=== PATIENT | female | born 1950 | race American Indian/Alaskan Native ===

== ENCOUNTER 2016-11-16 17:57 | Emergency (ER) | payer MEDICARE, MEDICAID ==
--- NOTE | 2016-11-16 17:53 | EDM.PDOC ---
ED HISTORY OF PRESENT ILLNESS - General Chief Complaint: Chest Pain Stated Complaint: AMB Time Seen by Provider: 11/16/16 17:29 Source of Information: Reports: Patient, EMS notes reviewed, RN, RN notes reviewed History Limitations: Reports: No limitations - History of Present Illness INITIAL COMMENTS - FREE TEXT/NARRATIVE: Arrives by ambulance complaining of chest pain, nausea, vomiting and upper abdominal pain. Patient admits to several days of heavy alcohol drinking and chronic ETOH abuse. Severity: moderate Location, General: Reports: chest Quality: Reports: Ache Improves with: Reports: None Worsens with: Reports: None Associated Symptoms (General): Reports: no other symptoms - Related Data Allergies/ADRs: Allergies Allergy/AdvReac Type Severity Reaction Status Date / Time lisinopril Allergy Cough Verified 11/16/16 18:19 Home Meds: Home Meds Aspirin [Darek Chewable Aspirin] 81 mg PO DAILY 04/09/14 [History] Bimatoprost [LUMIGAN 0.01% Ophth Soln] 1 drop EYEBOTH BEDTIME 04/09/14 [History] Insulin Aspart [Novolog Flexpen] 15 units SQ TID 04/09/14 [History] Metoprolol Succinate [Toprol XL 50mg] 50 mg PO DAILY 04/09/14 [History] Losartan [Cozaar] 25 mg PO DAILY 06/22/15 [History] Acetaminophen [Tylenol] 2 tab PO ASDIRECTED PRN 10/09/15 [History] Omeprazole 20 mg PO DAILY 10/09/15 [History] Insulin Detemir [Levemir] 50 unit SQ BEDTIME 10/14/15 [History] glipiZIDE [Glucotrol XL] 2.5 mg PO DAILY 04/19/16 [History] Past Medical History HEENT History: Reports: None, Impaired vision Other HEENT History: WEARS CORRECTIVE LENSES; UPPER AND LOWER DENTURES, DOESN'T WEAR THEM Cardiovascular History: Reports: Angina, Hypertension Respiratory History: Reports: Asthma, Bronchitis, recurrent Gastrointestinal History: Reports: Gastritis, GERD Genitourinary History: Reports: STD, UTI, recurrent Other Genitourinary History: trichomonas vaginitis [employer] History: Reports: 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 History: Reports: Fracture Other 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 History: fractured right fibula (closed reduction) Neurological History: Reports: None Psychiatric History: Reports: Addiction, Anxiety Other Psychiatric History: hx alcoholism Endocrine/Metabolic History: Reports: Diabetes, type II, Obesity/BMI 30+ Hematologic History: Reports: None Immunologic History: Reports: None Oncologic (Cancer) History: Reports: None Dermatologic History: Reports: None - Infectious Disease History Infectious Disease History: Reports: Chicken pox, Measles - Past Surgical History HEENT Surgical History: Reports: Oral surgery Cardiovascular Surgical History: Reports: None GI Surgical History: Reports: Appendectomy, Cholecystectomy, Colonoscopy, EGD Female Surgical History: Reports: None Social & Family History - Family History Family Medical History: Noncontributory - Tobacco Use Smoking Status *Q: Current Every Day Smoker Years of Tobacco use: 50 Packs/Tins Daily: 0.2 Used Tobacco, but Quit: No Second Hand Smoke Exposure: Yes - Caffeine Use Caffeine Use: Reports: Soda - Alcohol Use Days Per Week of Alcohol Use: 1 Number of Drinks Per Day: 15 Total Drinks Per Week: 15 - Recreational Drug Use Recreational Drug Use: No Drug Use in Last 12 Months: No - Living Situation & Occupation Living situation: Reports: , with family Occupation: unemployed ED ROS GENERAL - Review of Systems Review Of Systems: ROS reveals no pertinent complaints other than HPI. ED EXAM, GENERAL - Physical Exam Exam: See Below Exam Limited By: No limitations General Appearance: other (obese, intoxicated.) Eye Exam: bilateral eye: normal inspection Ears: normal external exam, normal canal, hearing grossly normal, normal TMs Nose: normal inspection, normal mucosa, no blood Throat/Mouth: Normal inspection, Normal lips, Normal teeth, Normal gums, Normal oropharynx, Normal voice, No airway compromise Head: atraumatic, normocephalic Neck: normal inspection, supple, non-tender, full range of motion Respiratory/Chest: no respiratory distress, lungs clear, normal breath sounds, no accessory muscle use, chest non-tender Cardiovascular: normal peripheral pulses, regular rate, rhythm, no edema, no gallop, no JVD, no murmur, no rub GI/Abdominal: other (mild epigastric tenderness. Obese.) Back Exam: normal inspection, full range of motion, NT Extremities: normal inspection, normal range of motion, non-tender, normal capillary refill, no pedal edema Neurological: alert, oriented, CN II-XII intact, normal cognition, normal gait, normal reflexes, no motor/sensory deficits Psychiatric: normal affect, normal mood Skin Exam: Warm, Dry, Intact, Normal color, No rash EKG INTERPRETATION EKG Date: 11/16/16 Time: 17:42 Rhythm: other (sinus tachycardia) Rate (beats/min): 120 [place]: normal P-wave: present QRS: RBBB (and LPFB and inferior Q waves) ST-T: normal QT: normal Course - Vital Signs Last Recorded V/S: Last Vital Signs Temp 36.1 C 11/16/16 17:30 Pulse 74 11/16/16 17:30 Resp 18 11/16/16 17:30 BP 124/68 11/16/16 17:30 Pulse Ox 98 11/16/16 17:30 - Orders/Labs/Meds Orders: Active Orders 24 hr Category Date Time Status EKG 12 Lead [EKG Documentation Completion] [RC] STAT Care 11/16/16 17:52 Active Peripheral IV Care [RC] . DIRECTED Care 11/16/16 17:52 Active Sodium Chloride 0.9% [Saline Flush] Med 11/16/16 17:52 Active 10 ml FLUSH ASDIRECTED PRN Peripheral IV Insertion Adult [OM.PC] Stat Oth 11/16/16 17:52 Ordered Medication Orders Sodium Chloride (Saline Flush) 10 ml FLUSH ASDIRECTED PRN PRN Reason: Keep Vein Open Labs: Laboratory Tests 11/16/16 11/16/16 11/16/16 Range/Units 18:00 18:00 18:00 WBC 8.5 (5.0-10.0) 10^3/uL RBC 4.34 (4.2-5.4) 10^6/uL Hgb 13.4 (12.0-16.0) g/dL Hct 39.0 (37.0-47.0) % MCV 89.9 (80-100) fL MCH 30.9 (27.0-34.0) pg MCHC 34.4 (33.0-35.0) g/dL Plt Count 199 (150-450) 10^3/uL Neut % (Auto) 65.6 (42.2-75.2) % Lymph % (Auto) 31.5 (20.5-50.1) % [place] % (Auto) 2.6 (2-8) % Eos % (Auto) 0.2 L (1.0-3.0) % Baso % (Auto) 0.1 (0.0-1.0) % PT 10.1 (9.0-12.0) SEC INR 1.0 (0.9-1.2) APTT 27.6 (22.0-34.0) SEC Sodium 133 L (135-145) mmol/L Potassium 4.0 (3.6-5.0) mmol/L Chloride 96 L (101-111) mmol/L Carbon Dioxide 18.0 L (21.0-31.0) mmol/L Anion Gap 23.0 BUN 13 (7-18) mg/dL Creatinine 0.6 (0.6-1.3) mg/dL Est Cr Clr Drug Dosing TNP Estimated GFR (MDRD) > 60 BUN/Creatinine Ratio 21.66 Glucose 163 H (74-105) mg/dL Calcium 8.6 (8.4-10.2) mg/dl Total Bilirubin 0.7 (0.2-1.0) mg/dL AST 54 H (10-42) IU/L ALT 44 (10-60) IU/L Alkaline Phosphatase 91 (42-121) IU/L Troponin I < 0.02 (0.00-0.02) ng/ml Total Protein 8.1 (6.7-8.2) g/dl Albumin 4.1 (3.2-5.5) g/dl Globulin 4.0 Albumin/Globulin Ratio 1.03 Amylase 19 L (28-100) U/L Lipase 16 L (22-51) U/L Urine Color (YELLOW) Urine Appearance (CLEAR) Urine pH (5.0-9.0) Ur Specific [place] (1.005-1.030) Urine Protein (NEGATIVE) Urine Glucose (UA) (NEGATIVE) Urine Ketones (NEGATIVE) Urine Occult Blood (NEGATIVE) Urine Nitrite (NEGATIVE) Urine Bilirubin (NEGATIVE) Urine Urobilinogen (0.2-1.0) mg/dL Ur Leukocyte Esterase (NEGATIVE) Urine RBC /HPF Urine WBC (0-5/HPF) /HPF Ur Epithelial Cells /HPF Urine Bacteria (0-FEW/HPF) /HPF Urine Opiates Screen (NEGATIVE) Ur Oxycodone Screen (NEGATIVE) Urine Methadone Screen (NEGATIVE) Ur Barbiturates Screen (NEGATIVE) U Tricyclic Antidepress (NEGATIVE) Ur Phencyclidine Scrn (NEGATIVE) Ur Amphetamine Screen (NEGATIVE) U Methamphetamines Scrn (NEGATIVE) Urine MDMA Screen (NEGATIVE) U Benzodiazepines Scrn (NEGATIVE) Urine Cocaine Screen (NEGATIVE) U Marijuana (THC) Screen (NEGATIVE) Ethyl Alcohol 274 mg/dL 11/16/16 11/16/16 Range/Units 18:47 18:47 WBC (5.0-10.0) 10^3/uL RBC (4.2-5.4) 10^6/uL Hgb (12.0-16.0) g/dL Hct (37.0-47.0) % MCV (80-100) fL MCH (27.0-34.0) pg MCHC (33.0-35.0) g/dL Plt Count (150-450) 10^3/uL Neut % (Auto) (42.2-75.2) % Lymph % (Auto) (20.5-50.1) % [place] % (Auto) (2-8) % Eos % (Auto) (1.0-3.0) % Baso % (Auto) (0.0-1.0) % PT (9.0-12.0) SEC INR (0.9-1.2) APTT (22.0-34.0) SEC Sodium (135-145) mmol/L Potassium (3.6-5.0) mmol/L Chloride (101-111) mmol/L Carbon Dioxide (21.0-31.0) mmol/L Anion Gap BUN (7-18) mg/dL Creatinine (0.6-1.3) mg/dL Est Cr Clr Drug Dosing Estimated GFR (MDRD) BUN/Creatinine Ratio Glucose (74-105) mg/dL Calcium (8.4-10.2) mg/dl Total Bilirubin (0.2-1.0) mg/dL AST (10-42) IU/L ALT (10-60) IU/L Alkaline Phosphatase (42-121) IU/L Troponin I (0.00-0.02) ng/ml Total Protein (6.7-8.2) g/dl Albumin (3.2-5.5) g/dl Globulin Albumin/Globulin Ratio Amylase (28-100) U/L Lipase (22-51) U/L Urine Color Yellow (YELLOW) Urine Appearance Cloudy (CLEAR) Urine pH 5.0 (5.0-9.0) Ur Specific [place] <= 1.005 (1.005-1.030) Urine Protein Trace H (NEGATIVE) Urine Glucose (UA) Negative (NEGATIVE) Urine Ketones 15 H (NEGATIVE) Urine Occult Blood Trace-lysed H (NEGATIVE) Urine Nitrite Positive H (NEGATIVE) Urine Bilirubin Negative (NEGATIVE) Urine Urobilinogen 0.2 (0.2-1.0) mg/dL Ur Leukocyte Esterase Small H (NEGATIVE) Urine RBC 0-5 /HPF Urine WBC 20-30 H (0-5/HPF) /HPF Ur Epithelial Cells Few /HPF Urine Bacteria Many H (0-FEW/HPF) /HPF Urine Opiates Screen Negative (NEGATIVE) Ur Oxycodone Screen Negative (NEGATIVE) Urine Methadone Screen Negative (NEGATIVE) Ur Barbiturates Screen Negative (NEGATIVE) U Tricyclic Antidepress Negative (NEGATIVE) Ur Phencyclidine Scrn Negative (NEGATIVE) Ur Amphetamine Screen Negative (NEGATIVE) U Methamphetamines Scrn Negative (NEGATIVE) Urine MDMA Screen Negative (NEGATIVE) U Benzodiazepines Scrn Negative (NEGATIVE) Urine Cocaine Screen Negative (NEGATIVE) U Marijuana (THC) Screen Negative (NEGATIVE) Ethyl Alcohol mg/dL Meds: Medications Generic Name Dose Route Start Last Admin Trade Name Freq PRN Reason Stop Dose Admin Sodium Chloride 10 ml 11/16/16 17:52 Saline Flush FLUSH ASDIRECTED PRN Keep Vein Open Discontinued Medications Generic Name Dose Route Start Last Admin Trade Name Freq PRN Reason Stop Dose Admin Multivitamins/Minerals 10 ml/ 1,011.2 mls @ 999 mls/hr 11/16/16 17:53 18:17 Thiamine HCl 100 mg/ Folic IV 11/16/16 18:53 999 mls/hr Acid 1 mg/ Lactated Ringer's .BOLUS ONE Administration Ondansetron HCl 4 mg 11/16/16 17:56 11/16/16 18:15 Zofran IV 11/16/16 17:57 4 mg ONETIME ONE Administration Pantoprazole Sodium 80 mg 11/16/16 17:56 11/16/16 18:15 Protonix Iv IVPUSH 11/16/16 17:57 80 mg .BOLUS ONE Administration - Radiology Interpretation Free Text/Narrative:: Chest x-ray: Per rad report no acute findings. Departure - Departure Time of Disposition: 19:18 Disposition: Home, Self-Care 01 Condition: fair Clinical Impression: Alcohol use, Non-cardiac chest pain Alcoholic gastritis without bleeding Qualifiers: Chronicity: acute Qualified Code(s): K29.20 - Alcoholic gastritis without bleeding Instructions: Gastritis, Adult, [id number] Forms: ED Department Discharge Additional Instructions: Avoid spicy food, greasy or fatty foods, and acidic foods. Abstain from alcohol. Follow up in clinic in 3-4 days for recheck. RE: Carafate 1gram. Continue omeprazole 20mg one daily. - My Orders Last 24 Hours: My Active Orders 11/16/16 17:52 EKG 12 Lead [EKG Documentation Completion] [RC] STAT Peripheral IV Care [RC] . DIRECTED Sodium Chloride 0.9% [Saline Flush] 10 ml FLUSH ASDIRECTED PRN Peripheral IV Insertion Adult [OM.PC] Stat - Assessment/Plan Last 24 Hours: My Active Orders 11/16/16 17:52 EKG 12 Lead [EKG Documentation Completion] [RC] STAT Peripheral IV Care [RC] . DIRECTED Sodium Chloride 0.9% [Saline Flush] 10 ml FLUSH ASDIRECTED PRN Peripheral IV Insertion Adult [OM.PC] Stat
[~2016-11-16 17:57] MED LIST: MVI, Adult with Vitamin K 10 ML, Thiamine 100 MG, Folic Acid 1 MG in Lactated Ringers 1... IV ONE; Ondansetron 4 MG/2 ML SDV IV ONE; Pantoprazole 40 MG Vial IVPUSH ONE; Sodium Chloride 0.9% 10 ML Syringe FLUSH PRN
[2016-11-16 18:29] LABS: CHLORIDE,CL 96 mmol/L (101-111); SODIUM,NA 133 mmol/L (135-145)
[2016-11-16 20:44] VITALS: BP 160/70
--- NOTE | 2016-11-20 12:07 | EKG ---
11/16/2016 - EDWARDO HOPE - TIME OF EK hours. I reviewed the EKG and agree with the machine's reading. [facility] /[id number]
== END 2016-11-16 19:30 | disposition home or self-care (01) ==
LOC: DL.ED 17:57
DX: K29.20 Alcoholic gastritis without bleeding (principal); R07.89 Other chest pain; I10 Essential (primary) hypertension; J45.909 Unspecified asthma, uncomplicated; K21.9 Gastro-esophageal reflux disease without esophagitis; E11.9 Type 2 diabetes mellitus without complications; E66.9 Obesity, unspecified; F17.210 Nicotine dependence, cigarettes, uncomplicated; Z87.440 Personal history of urinary (tract) infections; Z79.4 Long term (current) use of insulin; Z79.899 Other long term (current) drug therapy; Z90.49 Acquired absence of other specified parts of digestive tract; Z79.82 Long term (current) use of aspirin; Z88.8 Allergy status to other drugs, medicaments and biological substances
CPT/HCPCS: 36415; 71010; 80053; 80305; 81001; 82150; 83690; 84484; 85025; 85610; 85730; 93005; 93010; 96361; 96374; 96375; 99285; C9113; G0480; J2405; J3411; J7120; 99283; J3490

== ENCOUNTER 2017-04-17 19:53 | Emergency (ER) | payer MEDICARE, MEDICAID ==
--- NOTE | 2017-04-17 20:32 | EDM.PDOC ---
ED HPI GENERAL MEDICAL PROBLEM - General Chief Complaint: Chest Pain Time Seen by Provider: 04/17/17 20:20 Source of Information: Reports: Patient, EMS - History of Present Illness INITIAL COMMENTS - FREE TEXT/NARRATIVE: c/o midsternal chest pain, episode this afternoon that presented while lying on cough watching tv. Notes got up and was doing things and pain resolved, Another episode tonight again while lying down in bed watching tv. EMs gave one nitro. No pain at present. Diabetic, Blood sugars this week 70-100. 3 aspirin taken today. Hx acid reflux. - Related Data Allergies Allergy/AdvReac Type Severity Reaction Status Date / Time lisinopril Allergy Cough Verified 04/17/17 20:14 Home Meds: Home Meds Aspirin [Darek Chewable Aspirin] 81 mg PO DAILY 04/09/14 [History] Insulin Aspart [Novolog Flexpen] 15 units SQ TID 04/09/14 [History] Metoprolol Succinate [Toprol XL 50mg] 50 mg PO DAILY 04/09/14 [History] Losartan [Cozaar] 25 mg PO DAILY 06/22/15 [History] Insulin Detemir [Levemir] 50 unit SQ BEDTIME 10/14/15 [History] glipiZIDE [Glucotrol XL] 2.5 mg PO DAILY 04/19/16 [History] Bimatoprost [LUMIGAN 0.03% Ophth Soln] 1 drop EYEBOTH BEDTIME 04/17/17 [History] Docusate Sodium 100 mg PO BID 04/17/17 [History] Famotidine 20 mg PO DAILY 04/17/17 [History] Past Medical History HEENT History: Reports: None, Impaired Vision Other HEENT History: WEARS CORRECTIVE LENSES; UPPER AND LOWER DENTURES, DOESN'T WEAR THEM Cardiovascular History: Reports: Angina, Hypertension Respiratory History: Reports: Asthma, Bronchitis, Recurrent Gastrointestinal History: Reports: Gastritis, GERD Genitourinary History: Reports: STD, UTI, Recurrent Other Genitourinary History: trichomonas vaginitis [employer] History: Reports: 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 History: Reports: Fracture Other 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 History: fractured right fibula (closed reduction) Neurological History: Reports: None Psychiatric History: Reports: Addiction, Anxiety Other Psychiatric History: hx alcoholism Endocrine/Metabolic History: Reports: Diabetes, Type II, Obesity/BMI 30+ Hematologic History: Reports: None Immunologic History: Reports: None Oncologic (Cancer) History: Reports: None Dermatologic History: Reports: None - Infectious Disease History Infectious Disease History: Reports: Chicken Pox, Measles - Past Surgical History HEENT Surgical History: Reports: Oral Surgery Cardiovascular Surgical History: Reports: None GI Surgical History: Reports: Appendectomy, Cholecystectomy, Colonoscopy, EGD Social & Family History - Family History Family Medical History: Noncontributory - Tobacco Use Smoking Status *Q: Current Every Day Smoker Years of Tobacco use: 50 Packs/Tins Daily: 0.2 Used Tobacco, but Quit: No Second Hand Smoke Exposure: Yes - Caffeine Use Caffeine Use: Reports: Soda - Alcohol Use Days Per Week of Alcohol Use: 1 Number of Drinks Per Day: 15 Total Drinks Per Week: 15 - Recreational Drug Use Recreational Drug Use: No Drug Use in Last 12 Months: No - Living Situation & Occupation Living situation: Reports: , with Family Occupation: Unemployed ED ROS GENERAL - Review of Systems Review Of Systems: See Below Constitutional: Reports: No Symptoms HEENT: Reports: No Symptoms Respiratory: Reports: No Symptoms Cardiovascular: Reports: Chest Pain. Denies: Dyspnea on Exertion, Edema, Lightheadedness, Orthopnea, Palpitations, Syncope Endocrine: Reports: No Symptoms GI/Abdominal: Reports: Abdominal Pain (epigastric resolves when up). Denies: Decreased Appetite, Difficulty Swallowing, Hematemesis, Hematochezia 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: Reports: No Symptoms Skin: Reports: No Symptoms Neurological: Reports: No Symptoms ED EXAM, GENERAL - Physical Exam Exam: See Below Exam Limited By: No Limitations General Appearance: Alert, No Apparent Distress Eye Exam: Bilateral Eye: EOMI Ears: Normal External Exam Nose: Normal Inspection Throat/Mouth: Normal Inspection, Normal Lips. No: Normal Teeth (absent) Head: Atraumatic, Normocephalic Neck: Normal Inspection, Full Range of Motion. No: Carotid Bruit Respiratory/Chest: No Respiratory Distress, Lungs Clear, Normal Breath Sounds Cardiovascular: Normal Peripheral Pulses, Regular Rate, Rhythm, No Edema, No JVD GI/Abdominal: Normal Bowel Sounds, Soft, Tender (epigastric with palpation) Back Exam: Normal Inspection Extremities: Normal Inspection Neurological: Alert, Oriented, Normal Cognition, No Motor/Sensory Deficits Psychiatric: Anxious Skin Exam: Warm, Dry, Intact, Normal Color EKG INTERPRETATION Rhythm: NSR Course - Vital Signs Last Recorded V/S: Last Vital Signs Temp 97.8 F 04/17/17 20:12 Pulse 67 04/17/17 20:51 Resp 16 04/17/17 20:51 BP 109/64 04/17/17 20:51 Pulse Ox 95 04/17/17 20:51 - Orders/Labs/Meds Orders: Active Orders 24 hr Category Date Time Status EKG 12 Lead [EKG Documentation Completion] [RC] STAT Care 04/17/17 20:20 Active Labs: Laboratory Tests 04/17/17 04/17/17 04/17/17 Range/Units 20:25 20:25 20:25 WBC 8.3 (5.0-10.0) 10^3/uL RBC 3.68 L (4.2-5.4) 10^6/uL Hgb 11.4 L (12.0-16.0) g/dL Hct 35.6 L (37.0-47.0) % MCV 96.7 (80-100) fL MCH 31.0 (27.0-34.0) pg MCHC 32.0 L (33.0-35.0) g/dL Plt Count 201 (150-450) 10^3/uL Neut % (Auto) 65.7 (42.2-75.2) % Lymph % (Auto) 26.5 (20.5-50.1) % [place] % (Auto) 5.5 (2-8) % Eos % (Auto) 2.2 (1.0-3.0) % Baso % (Auto) 0.1 (0.0-1.0) % PT 9.8 (9.0-12.0) SEC INR 1.0 (0.9-1.2) D-Dimer, Quantitative < 100 (0-400) ng/mL Sodium 144 (135-145) mmol/L Potassium 3.9 (3.6-5.0) mmol/L Chloride 110 (101-111) mmol/L Carbon Dioxide 24.0 (21.0-31.0) mmol/L Anion Gap 13.9 BUN 20 H (7-18) mg/dL Creatinine 0.6 (0.6-1.3) mg/dL Est Cr Clr Drug Dosing 84.11 mL/min Estimated GFR (MDRD) > 60 BUN/Creatinine Ratio 33.33 Glucose 79 (74-105) mg/dL Calcium 9.0 (8.4-10.2) mg/dl Total Bilirubin 0.4 (0.2-1.0) mg/dL AST 38 (10-42) IU/L ALT 36 (10-60) IU/L Alkaline Phosphatase 94 (42-121) IU/L CK-MB (CK-2) (0.4-4.7) ng/mL Troponin I < 0.02 (0.00-0.02) ng/ml B-Natriuretic Peptide (0-100) pg/ml Total Protein 7.2 (6.7-8.2) g/dl Albumin 3.5 (3.2-5.5) g/dl Globulin 3.7 Albumin/Globulin Ratio 0.95 04/17/17 04/17/17 Range/Units 20:25 20:25 WBC (5.0-10.0) 10^3/uL RBC (4.2-5.4) 10^6/uL Hgb (12.0-16.0) g/dL Hct (37.0-47.0) % MCV (80-100) fL MCH (27.0-34.0) pg MCHC (33.0-35.0) g/dL Plt Count (150-450) 10^3/uL Neut % (Auto) (42.2-75.2) % Lymph % (Auto) (20.5-50.1) % [place] % (Auto) (2-8) % Eos % (Auto) (1.0-3.0) % Baso % (Auto) (0.0-1.0) % PT (9.0-12.0) SEC INR (0.9-1.2) D-Dimer, Quantitative (0-400) ng/mL Sodium (135-145) mmol/L Potassium (3.6-5.0) mmol/L Chloride (101-111) mmol/L Carbon Dioxide (21.0-31.0) mmol/L Anion Gap BUN (7-18) mg/dL Creatinine (0.6-1.3) mg/dL Est Cr Clr Drug Dosing mL/min Estimated GFR (MDRD) BUN/Creatinine Ratio Glucose (74-105) mg/dL Calcium (8.4-10.2) mg/dl Total Bilirubin (0.2-1.0) mg/dL AST (10-42) IU/L ALT (10-60) IU/L Alkaline Phosphatase (42-121) IU/L CK-MB (CK-2) 1.00 (0.4-4.7) ng/mL Troponin I (0.00-0.02) ng/ml B-Natriuretic Peptide 24 (0-100) pg/ml Total Protein (6.7-8.2) g/dl Albumin (3.2-5.5) g/dl Globulin Albumin/Globulin Ratio Departure - Departure Time of Disposition: 21:17 Disposition: Home, Self-Care 01 Condition: Good Clinical Impression: Anxiety GERD (gastroesophageal reflux disease) Qualifiers: Esophagitis presence: with esophagitis Qualified Code(s): K21.0 - Gastro- esophageal reflux disease with esophagitis Instructions: Gastroesophageal Reflux Disease, Adult, [id number] Forms: ED Department Discharge Additional Instructions: bland low fat diet, avoid spicy, greasy, or high acid foods upright at least 1/2 hour after meals recheck with primary care next week urgent follow up if dizziness , sweating, shortness of breath - My Orders Last 24 Hours: My Active Orders 04/17/17 20:20 EKG 12 Lead [EKG Documentation Completion] [RC] STAT - Assessment/Plan Last 24 Hours: My Active Orders 04/17/17 20:20 EKG 12 Lead [EKG Documentation Completion] [RC] STAT
[2017-04-17 20:51] LABS: CHLORIDE,CL 110 mmol/L (101-111); SODIUM,NA 144 mmol/L (135-145)
[2017-04-17 20:55] VITALS: BP 109/64
--- NOTE | 2017-05-10 09:42 | EKG ---
04/17/2017- JERED HOPE - This is a standard 12-lead EKG showing normal sinus rhythm with ventricular rate 73 beats per minute. Normal NC interval, QRS duration and with a right and left bundle-branch block. [facility] /[id number]
== END 2017-04-17 21:26 | disposition home or self-care (01) ==
LOC: DL.ED 19:53
DX: K21.0 Gastro-esophageal reflux disease with esophagitis (principal); F41.9 Anxiety disorder, unspecified; I10 Essential (primary) hypertension; E11.9 Type 2 diabetes mellitus without complications; E66.9 Obesity, unspecified; F17.210 Nicotine dependence, cigarettes, uncomplicated; Z90.49 Acquired absence of other specified parts of digestive tract; Z98.890 Other specified postprocedural states; Z68.36 Body mass index [BMI] 36.0-36.9, adult; Z79.4 Long term (current) use of insulin; Z79.82 Long term (current) use of aspirin; Z79.899 Other long term (current) drug therapy; Z88.8 Allergy status to other drugs, medicaments and biological substances; Z87.440 Personal history of urinary (tract) infections
CPT/HCPCS: 36415; 71010; 80053; 82553; 83880; 84484; 85025; 85379; 85610; 93005; 93010; 99284; 99285

== ENCOUNTER 2017-09-05 13:30 | Emergency (ER) | payer MEDICARE, MEDICAID ==
[2017-09-05 16:56] LABS: CHLORIDE,CL 100 mmol/L (101-111); SODIUM,NA 135 mmol/L (135-145)
[2017-09-05] MEDS ORDERED: Acetaminophen/HYDROcodone 325-10 MG Tab PO ONE (18:56)
--- NOTE | 2017-09-05 18:59 | EDM.PDOC ---
Scribed by Saumya Whitney 09/05/17 0581 for Brody Hicks MD ED HPI GENERAL MEDICAL PROBLEM - General Chief Complaint: Lower Extremity Injury/Pain Stated Complaint: IN BY AMBULANCE Time Seen by Provider: 09/05/17 15:55 Source of Information: Reports: Patient, RN, RN Notes Reviewed History Limitations: Reports: No Limitations - History of Present Illness INITIAL COMMENTS - FREE TEXT/NARRATIVE: Patient presents to ER with complaint of left ankle pain. States she was going to the bathroom about midnight last night. Has not been able to bear weight on it. She rates her pain 10/10 and it is throbbing. Onset: Today Duration: Constant Location: Reports: Lower Extremity, Left Quality: Reports: Ache Severity: Severe Improves with: Reports: None Worsens with: Reports: None Associated Symptoms: Reports: No Other Symptoms - Related Data Allergies Allergy/AdvReac Type Severity Reaction Status Date / Time lisinopril Allergy Cough Verified 04/17/17 20:14 Home Meds: Home Meds Aspirin [Darek Chewable Aspirin] 81 mg PO DAILY 04/09/14 [History] Insulin Aspart [Novolog Flexpen] 15 units SQ TID 04/09/14 [History] Metoprolol Succinate [Toprol XL 50mg] 50 mg PO DAILY 04/09/14 [History] Losartan [Cozaar] 25 mg PO DAILY 06/22/15 [History] Insulin Detemir [Levemir] 50 unit SQ BEDTIME 10/14/15 [History] glipiZIDE [Glucotrol XL] 2.5 mg PO DAILY 04/19/16 [History] Bimatoprost [LUMIGAN 0.03% Ophth Soln] 1 drop EYEBOTH BEDTIME 04/17/17 [History] Docusate Sodium 100 mg PO BID 04/17/17 [History] Famotidine 20 mg PO DAILY 04/17/17 [History] Past Medical History HEENT History: Reports: None, Impaired Vision Other HEENT History: WEARS CORRECTIVE LENSES; UPPER AND LOWER DENTURES, DOESN'T WEAR THEM Cardiovascular History: Reports: Angina, Hypertension Respiratory History: Reports: Asthma, Bronchitis, Recurrent Gastrointestinal History: Reports: Gastritis, GERD Genitourinary History: Reports: STD, UTI, Recurrent Other Genitourinary History: trichomonas vaginitis 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: 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 History: Reports: Fracture Other 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 History: fractured right fibula (closed reduction) Neurological History: Reports: None Psychiatric History: Reports: Addiction, Anxiety Other Psychiatric History: hx alcoholism Endocrine/Metabolic History: Reports: Diabetes, Type II, Obesity/BMI 30+ Hematologic History: Reports: None Immunologic History: Reports: None Oncologic (Cancer) History: Reports: None Dermatologic History: Reports: None - Infectious Disease History Infectious Disease History: Reports: Chicken Pox, Measles - Past Surgical History HEENT Surgical History: Reports: Oral Surgery Cardiovascular Surgical History: Reports: None GI Surgical History: Reports: Appendectomy, Cholecystectomy, Colonoscopy, EGD Social & Family History - Family History Family Medical History: Noncontributory - Tobacco Use Smoking Status *Q: Current Every Day Smoker Years of Tobacco use: 50 Packs/Tins Daily: -1 Used Tobacco, but Quit: No Second Hand Smoke Exposure: Yes - Caffeine Use Caffeine Use: Reports: Soda - Alcohol Use Days Per Week of Alcohol Use: 1 Number of Drinks Per Day: 15 Total Drinks Per Week: 15 - Recreational Drug Use Recreational Drug Use: No Drug Use in Last 12 Months: No - Living Situation & Occupation Living situation: Reports: , with Family Occupation: Unemployed Review of Systems - Review of Systems Review Of Systems: ROS reveals no pertinent complaints other than HPI. ED EXAM, GENERAL - Physical Exam Exam: See Below Exam Limited By: No Limitations General Appearance: Alert, WD/WN, No Apparent Distress Eye Exam: Bilateral Eye: Normal Inspection Ears: Normal External Exam, Normal Canal, Hearing Grossly Normal, Normal TMs Nose: Normal Inspection, Normal Mucosa, No Blood Throat/Mouth: Normal Inspection, Normal Lips, Normal Teeth, Normal Gums, Normal Oropharynx, Normal Voice, No Airway Compromise Head: Atraumatic, Normocephalic Neck: Normal Inspection, Supple, Non-Tender, Full Range of Motion Respiratory/Chest: No Respiratory Distress, Lungs Clear, Normal Breath Sounds, No Accessory Muscle Use, Chest Non-Tender Cardiovascular: Normal Peripheral Pulses, Regular Rate, Rhythm, No Edema, No Gallop, No JVD, No Murmur, No Rub GI/Abdominal: Normal Bowel Sounds, Soft, Non-Tender, No Organomegaly, No Distention, No Abnormal Bruit, No Mass (Female) Exam: Deferred Rectal (Female) Exam: Deferred Back Exam: Normal Inspection, Full Range of Motion, NT Extremities: Other (left ankle pain.) Neurological: Alert, Oriented, CN II-XII Intact, Normal Cognition, Normal Gait, Normal Reflexes, No Motor/Sensory Deficits Psychiatric: Normal Affect, Normal Mood Skin Exam: Warm, Dry, Intact, Normal Color, No Rash Lymphatic: No Adenopathy Course - Vital Signs Last Recorded V/S: Last Vital Signs Temp 36.4 C 09/05/17 16:05 Pulse 77 09/05/17 16:05 Resp 18 09/05/17 16:05 BP 124/84 09/05/17 16:05 Pulse Ox 99 09/05/17 16:05 - Orders/Labs/Meds Orders: Active Orders 24 hr Category Date Time Status Ankle Min 3V Lt [CR] Routine Exams 09/05/17 Taken Labs: Laboratory Tests 09/05/17 09/05/17 09/05/17 Range/Units 13:09 16:18 16:18 WBC 9.4 (5.0-10.0) 10^3/uL RBC 4.06 L (4.2-5.4) 10^6/uL Hgb 12.7 (12.0-16.0) g/dL Hct 37.7 (37.0-47.0) % MCV 92.9 D (80-100) fL MCH 31.3 (27.0-34.0) pg MCHC 33.7 (33.0-35.0) g/dL Plt Count 209 (150-450) 10^3/uL Neut % (Auto) 77.5 H (42.2-75.2) % Lymph % (Auto) 17.5 L (20.5-50.1) % Roosevelt % (Auto) 4.8 (2-8) % Eos % (Auto) 0.1 L (1.0-3.0) % Baso % (Auto) 0.1 (0.0-1.0) % Sodium 135 (135-145) mmol/L Potassium 4.0 (3.6-5.0) mmol/L Chloride 100 L (101-111) mmol/L Carbon Dioxide 21.0 (21.0-31.0) mmol/L Anion Gap 18.0 BUN 28 H (7-18) mg/dL Creatinine 0.9 (0.6-1.3) mg/dL Est Cr Clr Drug Dosing 57.56 mL/min Estimated GFR (MDRD) > 60 BUN/Creatinine Ratio 31.11 Glucose 140 H (74-105) mg/dL POC Glucose 135 H (70-105) mg/dl Calcium 8.5 (8.4-10.2) mg/dl Total Bilirubin 1.5 H (0.2-1.0) mg/dL AST 55 H (10-42) IU/L ALT 59 (10-60) IU/L Alkaline Phosphatase 83 (42-121) IU/L Lactate Dehydrogenase 138 (91-180) IU/L Total Protein 7.8 (6.7-8.2) g/dl Albumin 3.9 (3.2-5.5) g/dl Globulin 3.9 Albumin/Globulin Ratio 1.00 - Radiology Interpretation Free Text/Narrative:: Right ankle x-ray: No acute fracture or malalignment. Healed distal fibular diaphysis fracture. Distal tibial enchondroma versus bone infarct. See Rad report. - Re-Assessments/Exams Free Text/Narrative Re-Assessment/Exam: 09/05/17 18:55 results discussed with pt. Departure - Departure Time of Disposition: 18:55 Disposition: Home, Self-Care 01 Condition: Good Clinical Impression: Left ankle sprain Qualifiers: Encounter type: initial encounter Involved ligament of ankle: tibiofibular ligament Qualified Code(s): S93.432A - Sprain of tibiofibular ligament of left ankle, initial encounter - Discharge Information Instructions: Ankle Sprain, [id number] Forms: ED Department Discharge Additional Instructions: 1) wear MARITZA for comfort 2) elevate leg as much as possible next 48 hours 3) see Chelsea Coe tomorrow for further evaluation on x-ray report of bony structure of ankle I have read and agree with the documentation that has been completed regarding this visit. By signing this record, I attest that the documentation was completed in my physical presence and is an accurate record of the encounter.
[2017-09-05 19:04] VITALS: BP 128/65
== END 2017-09-05 19:05 | disposition home or self-care (01) ==
LOC: DL.ED 13:30
DX: S93.432A Sprain of tibiofibular ligament of left ankle, initial encounter (principal); I10 Essential (primary) hypertension; K21.9 Gastro-esophageal reflux disease without esophagitis; E11.9 Type 2 diabetes mellitus without complications; F17.210 Nicotine dependence, cigarettes, uncomplicated; Z79.4 Long term (current) use of insulin; Z79.899 Other long term (current) drug therapy; Z79.82 Long term (current) use of aspirin; Z88.8 Allergy status to other drugs, medicaments and biological substances; X58.XXXA Exposure to other specified factors, initial encounter
CPT/HCPCS: 36415; 73610; 80053; 82962; 83615; 85025; 99284; A9270; 99283

== ENCOUNTER 2018-11-21 01:52 | Emergency (ER) | payer MEDICARE, MEDICAID ==
[2018-11-21] MEDS ORDERED: Sodium Chloride 0.9% 1,000 ML IV ONE (02:04)
[2018-11-21] MEDS ORDERED: Ondansetron 4 MG/2 ML SDV IV ONE (02:09)
--- NOTE | 2018-11-21 02:10 | EDM.PDOC ---
ED HPI GENERAL MEDICAL PROBLEM - General Chief Complaint: Chest Pain Stated Complaint: CHEST PAIN Time Seen by Provider: 11/21/18 02:00 Source of Information: Reports: Patient History Limitations: Reports: No Limitations - History of Present Illness INITIAL COMMENTS - FREE TEXT/NARRATIVE: This 68 yo female patient was brought to the ED by [facility] due to chest pain. The patient reports she was lying down when she started to have chest pain. The patient reports she has not taken any of her medications for the past 24 hours. The patient has been drinking beer (unknown quantity). The patient has had similar episodes in the past. The patient reports that during the last similar episode she was advised that she was having an anxiety attack. The patient reports tonight she was worried about her having an infection in his hand (back in August). The patient reports he is fine at this time. 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 (by EMS), Nitroglycerin (by EMS) Left Chest Pain Score (Numeric/FACES): 4 - Related Data Allergies Allergy/AdvReac Type Severity Reaction Status Date / Time lisinopril Allergy Cough Verified 11/21/18 02:01 Home Meds: Home Meds Aspirin [Darek Chewable Aspirin] 81 mg PO DAILY 04/09/14 [History] Insulin Aspart [Novolog Flexpen] 15 units SQ TID 04/09/14 [History] Metoprolol Succinate [Toprol XL 50mg] 50 mg PO DAILY 04/09/14 [History] Losartan [Cozaar] 25 mg PO DAILY 06/22/15 [History] Insulin Detemir [Levemir] 50 unit SQ BEDTIME 10/14/15 [History] glipiZIDE [Glucotrol XL] 2.5 mg PO DAILY 04/19/16 [History] Bimatoprost [LUMIGAN 0.03% Ophth Soln] 1 drop EYEBOTH BEDTIME 04/17/17 [History] Docusate Sodium 100 mg PO BID 04/17/17 [History] Famotidine 20 mg PO DAILY 04/17/17 [History] Aspirin [Adult Low Dose Aspirin EC] 81 mg PO 11/21/18 [History] Pioglitazone [Actos] 15 mg PO DAILY 11/21/18 [History] Past Medical History HEENT History: Reports: None, Impaired Vision Other HEENT History: WEARS CORRECTIVE LENSES; UPPER AND LOWER DENTURES, DOESN'T WEAR THEM Cardiovascular History: Reports: Angina, Hypertension Respiratory History: Reports: Asthma, Bronchitis, Recurrent Gastrointestinal History: Reports: Gastritis, GERD Genitourinary History: Reports: STD, UTI, Recurrent Other Genitourinary History: trichomonas vaginitis 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: 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 History: Reports: Fracture Other 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 History: fractured right fibula (closed reduction) Neurological History: Reports: None Psychiatric History: Reports: Addiction, Anxiety Other Psychiatric History: hx alcoholism Endocrine/Metabolic History: Reports: Diabetes, Type II, Obesity/BMI 30+ Hematologic History: Reports: None Immunologic History: Reports: None Oncologic (Cancer) History: Reports: None Dermatologic History: Reports: None - Infectious Disease History Infectious Disease History: Reports: Chicken Pox, Measles - Past Surgical History HEENT Surgical History: Reports: Oral Surgery Cardiovascular Surgical History: Reports: None GI Surgical History: Reports: Appendectomy, Cholecystectomy, Colonoscopy, EGD Social & Family History - Family History Family Medical History: Noncontributory - Caffeine Use Caffeine Use: Reports: Soda - Living Situation & Occupation Living situation: Reports: , with Family Occupation: Unemployed ED ROS GENERAL - Review of Systems Review Of Systems: ROS reveals no pertinent complaints other than HPI. ED EXAM, GENERAL - Physical Exam Exam: See Below Exam Limited By: No Limitations General Appearance: Alert, WD/WN, Moderate Distress Eye Exam: Bilateral Eye: EOMI, Normal Inspection, PERRL Ears: Normal External Exam, Normal Canal, Hearing Grossly Normal, Normal TMs Nose: Normal Inspection, Normal Mucosa, No Blood Throat/Mouth: Normal Inspection, Normal Lips, Normal Teeth, Normal Gums, Normal Oropharynx, Normal Voice, No Airway Compromise Head: Atraumatic, Normocephalic Neck: Normal Inspection, Supple, Non-Tender, Full Range of Motion Respiratory/Chest: No Respiratory Distress, Lungs Clear, Normal Breath Sounds, No Accessory Muscle Use, Chest Non-Tender Cardiovascular: Tachycardia GI/Abdominal: Normal Bowel Sounds, Soft, Non-Tender, No Organomegaly, No Distention, No Abnormal Bruit, No Mass, Other (obese) (Female) Exam: Deferred Rectal (Female) Exam: Deferred Back Exam: Normal Inspection, Full Range of Motion, NT Extremities: Normal Inspection, Normal Range of Motion, Non-Tender, Normal Capillary Refill, No Pedal Edema Neurological: Alert, Oriented, CN II-XII Intact, Normal Cognition, Normal Gait, Normal Reflexes, No Motor/Sensory Deficits Psychiatric: Anxious Skin Exam: Warm, Dry, Intact, Normal Color, No Rash Lymphatic: No Adenopathy Course - Vital Signs Last Recorded V/S: Last Vital Signs Temp 36.3 C 11/21/18 01:55 Pulse 97 11/21/18 02:55 Resp 17 11/21/18 02:55 BP 100/57 L 11/21/18 02:55 Pulse Ox 98 11/21/18 02:55 - Orders/Labs/Meds Orders: Active Orders 24 hr Category Date Time Status EKG Documentation Completion [RC] URGENT Care 11/21/18 02:01 Ordered CULTURE URINE [RM] Urgent Lab 11/21/18 02:34 Received Labs: Laboratory Tests 11/21/18 11/21/18 11/21/18 Range/Units 02:00 02:00 02:00 WBC 7.3 (5.0-10.0) 10^3/uL RBC 3.82 L (4.2-5.4) 10^6/uL Hgb 12.0 (12.0-16.0) g/dL Hct 35.7 L (37.0-47.0) % MCV 93.5 (80-100) fL MCH 31.4 (27.0-34.0) pg MCHC 33.6 (33.0-35.0) g/dL Plt Count 231 (150-450) 10^3/uL Neut % (Auto) 48.0 (42.2-75.2) % Lymph % (Auto) 47.7 (20.5-50.1) % Upson % (Auto) 3.0 (2-8) % Eos % (Auto) 1.2 (1.0-3.0) % Baso % (Auto) 0.1 (0.0-1.0) % D-Dimer, Quantitative 130 (0-400) ng/mL Sodium (135-145) mmol/L Potassium (3.6-5.0) mmol/L Chloride (101-111) mmol/L Carbon Dioxide (21.0-31.0) mmol/L Anion Gap BUN (7-18) mg/dL Creatinine (0.6-1.3) mg/dL Est Cr Clr Drug Dosing mL/min Estimated GFR (MDRD) BUN/Creatinine Ratio Glucose (74-105) mg/dL Calcium (8.4-10.2) mg/dl Total Bilirubin (0.2-1.0) mg/dL AST (10-42) IU/L ALT (10-60) IU/L Alkaline Phosphatase (42-121) IU/L Troponin I (0.00-0.02) ng/ml Total Protein (6.7-8.2) g/dl Albumin (3.2-5.5) g/dl Globulin Albumin/Globulin Ratio Urine Color (YELLOW) Urine Appearance (CLEAR) Urine pH (5.0-9.0) Ur Specific Aurora (1.005-1.030) Urine Protein (NEGATIVE) Urine Glucose (UA) (NEGATIVE) Urine Ketones (NEGATIVE) Urine Occult Blood (NEGATIVE) Urine Nitrite (NEGATIVE) Urine Bilirubin (NEGATIVE) Urine Urobilinogen (0.2-1.0) mg/dL Ur Leukocyte Esterase (NEGATIVE) Urine RBC /HPF Urine WBC (0-5/HPF) /HPF Ur Epithelial Cells /HPF Urine Bacteria (0-FEW/HPF) /HPF Salicylates < 4 mg/dL Urine Opiates Screen (NEGATIVE) Ur Oxycodone Screen (NEGATIVE) Urine Methadone Screen (NEGATIVE) Acetaminophen < 10 ug/mL Ur Barbiturates Screen (NEGATIVE) U Tricyclic Antidepress (NEGATIVE) Ur Phencyclidine Scrn (NEGATIVE) Ur Amphetamine Screen (NEGATIVE) U Methamphetamines Scrn (NEGATIVE) Urine MDMA Screen (NEGATIVE) U Benzodiazepines Scrn (NEGATIVE) Urine Cocaine Screen (NEGATIVE) U Marijuana (THC) Screen (NEGATIVE) Ethyl Alcohol 142 mg/dL Ketones 11/21/18 11/21/18 11/21/18 Range/Units 02:00 02:34 02:34 WBC (5.0-10.0) 10^3/uL RBC (4.2-5.4) 10^6/uL Hgb (12.0-16.0) g/dL Hct (37.0-47.0) % MCV (80-100) fL MCH (27.0-34.0) pg MCHC (33.0-35.0) g/dL Plt Count (150-450) 10^3/uL Neut % (Auto) (42.2-75.2) % Lymph % (Auto) (20.5-50.1) % Upson % (Auto) (2-8) % Eos % (Auto) (1.0-3.0) % Baso % (Auto) (0.0-1.0) % D-Dimer, Quantitative (0-400) ng/mL Sodium 135 (135-145) mmol/L Potassium 3.7 (3.6-5.0) mmol/L Chloride 100 L (101-111) mmol/L Carbon Dioxide 19.0 L (21.0-31.0) mmol/L Anion Gap 19.7 BUN 21 H (7-18) mg/dL Creatinine 0.8 (0.6-1.3) mg/dL Est Cr Clr Drug Dosing 61.40 mL/min Estimated GFR (MDRD) > 60 BUN/Creatinine Ratio 26.25 Glucose 175 H (74-105) mg/dL Calcium 8.3 L (8.4-10.2) mg/dl Total Bilirubin 0.4 (0.2-1.0) mg/dL AST 40 (10-42) IU/L ALT 29 (10-60) IU/L Alkaline Phosphatase 88 (42-121) IU/L Troponin I < 0.02 (0.00-0.02) ng/ml Total Protein 6.9 (6.7-8.2) g/dl Albumin 3.3 (3.2-5.5) g/dl Globulin 3.6 Albumin/Globulin Ratio 0.92 Urine Color Yellow (YELLOW) Urine Appearance Cloudy (CLEAR) Urine pH 5.5 (5.0-9.0) Ur Specific Aurora 1.010 (1.005-1.030) Urine Protein Negative (NEGATIVE) Urine Glucose (UA) Negative (NEGATIVE) Urine Ketones Negative (NEGATIVE) Urine Occult Blood Trace-intact H (NEGATIVE) Urine Nitrite Positive H (NEGATIVE) Urine Bilirubin Negative (NEGATIVE) Urine Urobilinogen 0.2 (0.2-1.0) mg/dL Ur Leukocyte Esterase Moderate H (NEGATIVE) Urine RBC 0-5 /HPF Urine WBC 50-75 H (0-5/HPF) /HPF Ur Epithelial Cells Moderate H /HPF Urine Bacteria Many H (0-FEW/HPF) /HPF Salicylates mg/dL Urine Opiates Screen Negative (NEGATIVE) Ur Oxycodone Screen Negative (NEGATIVE) Urine Methadone Screen Negative (NEGATIVE) Acetaminophen ug/mL Ur Barbiturates Screen Negative (NEGATIVE) U Tricyclic Antidepress Negative (NEGATIVE) Ur Phencyclidine Scrn Negative (NEGATIVE) Ur Amphetamine Screen Negative (NEGATIVE) U Methamphetamines Scrn Negative (NEGATIVE) Urine MDMA Screen Negative (NEGATIVE) U Benzodiazepines Scrn Negative (NEGATIVE) Urine Cocaine Screen Negative (NEGATIVE) U Marijuana (THC) Screen Negative (NEGATIVE) Ethyl Alcohol mg/dL Ketones Negative Meds: Medications Discontinued Medications Generic Name Dose Route Start Last Admin Trade Name Freq PRN Reason Stop Dose Admin Al Hydroxide/Mg Hydroxide 30 ml 11/21/18 02:30 11/21/18 02:55 Gi Cocktail PO 11/21/18 02:31 30 ml ONETIME ONE Administration Sodium Chloride 1,000 mls @ 999 mls/hr 11/21/18 02:04 11/21/18 02:06 Normal Saline IV 11/21/18 03:04 999 mls/hr .BOLUS ONE Administration Metoclopramide HCl 10 mg 11/21/18 02:21 11/21/18 02:28 Reglan IVPUSH 11/21/18 02:22 10 mg ONETIME ONE Administration Ondansetron HCl 4 mg 11/21/18 02:09 11/21/18 02:14 Zofran IV 11/21/18 02:10 4 mg ONETIME ONE Administration Pantoprazole Sodium 40 mg 11/21/18 02:48 11/21/18 02:54 Protonix Iv IVPUSH 11/21/18 02:49 40 mg ONETIME ONE Administration Departure - Departure Time of Disposition: 03:17 Disposition: Home, Self-Care 01 Condition: Fair Clinical Impression: Nonspecific chest pain GERD (gastroesophageal reflux disease) Qualifiers: Esophagitis presence: with esophagitis Qualified Code(s): K21.0 - Gastro- esophageal reflux disease with esophagitis Instructions: Nonspecific Chest Pain, [id number], Gastroesophageal Reflux Disease, Adult, [id number] Forms: ED Department Discharge Care Plan Goals: The patient was advised of the examination, EKG, lab and x-ray results during the visit. The patient was given an oral dose of Aspirin and Nitroglycerin by [facility] prior to arrival. The patient was also given IV Protonix and a GI Cocktail while in the emergency department. The patient was encouraged to continue to monitor for any additional symptoms. The patient was advised to take her medications as prescribed. If the patient has any additional symptoms or further concerns, the patient should either return to the emergency department or visit his primary care facility - My Orders Last 24 Hours: My Active Orders 11/21/18 02:01 EKG Documentation Completion [RC] URGENT 11/21/18 02:34 CULTURE URINE [RM] Urgent - Assessment/Plan Last 24 Hours: My Active Orders 11/21/18 02:01 EKG Documentation Completion [RC] URGENT 11/21/18 02:34 CULTURE URINE [RM] Urgent
[2018-11-21] MEDS ORDERED: Metoclopramide 10 MG/2 ML SDV IVPUSH ONE (02:21)
[2018-11-21 02:24] LABS: ANION GAP 19.7; CHLORIDE,CL 100 mmol/L (101-111); SODIUM,NA 135 mmol/L (135-145)
[2018-11-21 02:29] LABS: ACETAMINOPHEN < 10 ug/mL
[2018-11-21] MEDS ORDERED: GI Cocktail Oral Solution 30 ML PO ONE (02:30)
[2018-11-21] MEDS ORDERED: Pantoprazole 40 MG Vial IVPUSH ONE (02:48)
[2018-11-21 02:56] VITALS: BP 100/57
== END 2018-11-21 03:45 | disposition home or self-care (01) ==
LOC: DL.ED 01:52
DX: K21.0 Gastro-esophageal reflux disease with esophagitis (principal); R07.9 Chest pain, unspecified; I10 Essential (primary) hypertension; J45.909 Unspecified asthma, uncomplicated; E11.9 Type 2 diabetes mellitus without complications; Z79.4 Long term (current) use of insulin; Z79.899 Other long term (current) drug therapy; Z88.8 Allergy status to other drugs, medicaments and biological substances
CPT/HCPCS: 36415; 71045; 80053; 80305; 81001; 82009; 84484; 85025; 85379; 87086; 87088; 87186; 93005; 96361; 96374; 96375; 99285; A9270; C9113; G0480; J2405; J2765; J7030

== ENCOUNTER 2020-01-14 07:07 | Emergency (ER) | payer MEDICARE, MEDICAID, OTHER ==
[2020-01-14] MEDS ORDERED: Acetaminophen/HYDROcodone 325-5 MG Tab PO ONE (07:08)
[2020-01-14 07:22] VITALS: BP 156/84; PULSE 96
--- NOTE | 2020-01-14 07:22 | EDM.PDOC ---
ED HPI GENERAL MEDICAL PROBLEM - General Chief Complaint: Chest Pain Stated Complaint: ambulance Time Seen by Provider: 01/14/20 07:22 Source of Information: Reports: Patient, Old Records, RN, RN Notes Reviewed History Limitations: Reports: No Limitations - History of Present Illness INITIAL COMMENTS - FREE TEXT/NARRATIVE: Pt arrives to ER from home by ambulance with c/o left rib pain sustained from a fall in the bathroom yesterday when she struck her left ribs on the side of the bathtub. Denies head injury, neck pain, or LOC. Denies shortness of breath. Rates the pain 9/10. Nothing alleviates the pain. Breathing, movement, and palpation aggravate the pain. Onset: Sudden Onset Date: 01/13/20 Duration: Constant Location: Reports: Chest Quality: Reports: Ache Severity: Severe Improves with: Reports: None Associated Symptoms: Reports: No Other Symptoms Treatments [employer]: Reports: Acetaminophen Left Chest Pain Score (Numeric/FACES): 9 - Related Data Allergies Allergy/AdvReac Type Severity Reaction Status Date / Time lisinopril AdvReac Cough Verified 01/14/20 07:23 Home Meds: Home Meds Aspirin [Darek Chewable Aspirin] 81 mg PO DAILY 04/09/14 [History] Insulin Aspart [Novolog Flexpen] 14 - 15 units SQ TID 04/09/14 [History] Insulin Detemir [Levemir] 30 unit SQ BEDTIME 10/14/15 [History] Bimatoprost [LUMIGAN 0.03% Ophth Soln] 1 drop EYEBOTH BEDTIME 04/17/17 [History] Docusate Sodium 100 mg PO BID 04/17/17 [History] Acetaminophen 325 mg PO ASDIRECTED 02/23/19 [History] Alum Hydrox/Mag Hydrox/Simeth [Mag-Al Plus] 30 ml PO ASDIRECTED PRN 02/23/19 [ History] Past Medical History HEENT History: Reports: Impaired Vision Other HEENT History: WEARS CORRECTIVE LENSES; UPPER AND LOWER DENTURES, DOESN'T WEAR THEM Cardiovascular History: Reports: Angina, Hypertension Respiratory History: Reports: Asthma, Bronchitis, Recurrent Gastrointestinal History: Reports: Gastritis, GERD Genitourinary History: Reports: STD, UTI, Recurrent Other Genitourinary History: trichomonas vaginitis [employer] History: Reports: 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 History: Reports: Fracture Other 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 History: fractured right fibula (closed reduction) Neurological History: Reports: None Psychiatric History: Reports: Addiction, Anxiety Other Psychiatric History: hx alcoholism Endocrine/Metabolic History: Reports: Diabetes, Type II, Obesity/BMI 30+ Hematologic History: Reports: None Immunologic History: Reports: None Oncologic (Cancer) History: Reports: None Dermatologic History: Reports: None - Infectious Disease History Infectious Disease History: Reports: Chicken Pox, Measles - Past Surgical History HEENT Surgical History: Reports: Oral Surgery Cardiovascular Surgical History: Reports: None GI Surgical History: Reports: Appendectomy, Cholecystectomy, Colonoscopy, EGD Female Surgical History: Reports: None Male Surgical History: Reports: None Social & Family History - Family History Family Medical History: Noncontributory - Caffeine Use Caffeine Use: Reports: Soda - Living Situation & Occupation Living situation: Reports: , with Family Occupation: Unemployed ED ROS GENERAL - Review of Systems Review Of Systems: Comprehensive ROS is negative, except as noted in HPI. ED EXAM, GENERAL - Physical Exam Exam: See Below Exam Limited By: No Limitations General Appearance: Alert, WD/WN, No Apparent Distress Nose: Normal Inspection Throat/Mouth: Normal Inspection Head: Atraumatic, Normocephalic Neck: Normal Inspection, Supple, Non-Tender, Full Range of Motion Respiratory/Chest: No Respiratory Distress, Lungs Clear, No Accessory Muscle Use , Other (Left lateral and anterior lower chest wall tenderness with no visible bruising or deformity.). No: Crackles, Rales, Rhonchi, Wheezing, Stridor Cardiovascular: Normal Peripheral Pulses, Regular Rate, Rhythm GI/Abdominal: Normal Bowel Sounds, Soft, Non-Tender, No Organomegaly, No Distention, No Abnormal Bruit, No Mass Back Exam: Normal Inspection Extremities: Normal Inspection Neurological: Alert, Oriented, Normal Cognition, No Motor/Sensory Deficits Psychiatric: Normal Mood Skin Exam: Warm, Dry, Intact, Normal Color, No Rash Course - Vital Signs Last Recorded V/S: Last Vital Signs Temp 97.8 F 01/14/20 07:19 Pulse 96 01/14/20 07:19 Resp 18 01/14/20 07:19 BP 156/84 H 01/14/20 07:19 Pulse Ox 95 01/14/20 07:19 - Orders/Labs/Meds Orders: Active Orders 24 hr Category Date Time Status Incentive Spirometry [RT Incentive Spirometry] [RC] Care 01/14/20 08:14 Active ASDIRECTED Meds: Medications Discontinued Medications Generic Name Dose Route Start Last Admin Trade Name [place] PRN Reason Stop Dose Admin Hydrocodone Bitart/Acetaminophen 1 tab 01/14/20 07:25 01/14/20 07:31 [place] 325-10 Mg PO 01/14/20 07:26 1 tab ONETIME ONE Administration Ketorolac Tromethamine 30 mg 01/14/20 07:26 01/14/20 07:32 Toradol IM 01/14/20 07:27 30 mg ONETIME ONE Administration Lidocaine HCl 15 gm 01/14/20 08:15 01/14/20 08:28 Lidocaine 5% TOP 01/14/20 08:16 15 gm ONETIME ONE Administration - Radiology Interpretation Free Text/Narrative:: XR Left Ribs: non-displaced/minimally displaced fractures of ribs 6-9 per Rad. report. Departure - Departure Time of Disposition: 08:30 Disposition: Home, Self-Care 01 Condition: Good Clinical Impression: Multiple fractures of ribs, left side, initial encounter for closed fracture Fall as cause of accidental injury at home as place of occurrence Qualifiers: Encounter type: initial encounter Qualified Code(s): W19.XXXA - Unspecified fall, initial encounter - Discharge Information *PRESCRIPTION DRUG MONITORING PROGRAM REVIEWED*: Not Applicable *COPY OF PRESCRIPTION DRUG MONITORING REPORT IN PATIENT JODIE: Not Applicable Instructions: Rib Fracture, [id number] Forms: ED Department Discharge Additional Instructions: Rx: Hydrocodone APAP 5mg/325mg *Do not drive while taking this medication. Use a stool softener, eat prunes, and drink plenty of water to prevent constipation while taking this medication. Use the Incentive Spirometer every hour while awake until rib pain resolves. Follow up in clinic in 1 week for recheck. Sepsis Event Note - Evaluation Sepsis Screening Result: No Definite Risk - Focused Exam Vital Signs: Vital Signs Temp Pulse Resp BP Pulse Ox 01/14/20 07:19 97.8 F 96 18 156/84 H 95 Date Exam was Performed: 01/14/20 Time Exam was Performed: 08:35 - My Orders Last 24 Hours: My Active Orders 01/14/20 08:14 Incentive Spirometry [RT Incentive Spirometry] [RC] ASDIRECTED - Assessment/Plan Last 24 Hours: My Active Orders 05/31/20 08:14 Incentive Spirometry [RT Incentive Spirometry] [RC] ASDIRECTED
[2020-01-14] MEDS ORDERED: Acetaminophen/HYDROcodone 325-10 MG Tab PO ONE (07:25)
[2020-01-14] MEDS ORDERED: Ketorolac 30 MG/ML SDV IM ONE (07:26)
--- NOTE | 2020-01-14 08:01 | CR ---
PROCEDURE INFORMATION: Exam: XR Left Ribs with PA Chest, 3 Views Exam date and time: 01/14/2020 7:28 AM Age: 69 years old Clinical indication: Injury or trauma; Fall; Initial encounter; Rib area, left side; Blunt trauma; Injury date: 01-13-20; Injury details: Fell on bathtub, left lower rib pain. Marker in area of pain TECHNIQUE: Imaging protocol: XR Left ribs 3 views with PA chest. COMPARISON: No relevant prior studies available. FINDINGS: Lungs: Minimal atelectasis at the left lung base. Pleural space: Unremarkable. No pleural effusion. No pneumothorax. Heart/Mediastinum: Unremarkable. No cardiomegaly. Bones/joints: Minimally displaced fractures involving the anterior aspect of the left 6th through 8th ribs. IMPRESSION: 1. Minimal atelectasis at the left lung base. 2. Minimally displaced fractures involving the anterior aspect of the left 6th through 8th ribs.
[2020-01-14] MEDS ORDERED: Lidocaine 5% Oint 35.44 GM Tube TOP ONE (08:15)
[2020-01-14] MEDS ORDERED: Acetaminophen/HYDROcodone 325-5 MG Tab ONE (08:39)
== END 2020-01-14 08:58 | disposition home or self-care (01) ==
LOC: DL.ED 07:07
DX: S22.42XA Multiple fractures of ribs, left side, initial encounter for closed fracture (principal); I10 Essential (primary) hypertension; E11.9 Type 2 diabetes mellitus without complications; E66.9 Obesity, unspecified; Z79.4 Long term (current) use of insulin; Z79.82 Long term (current) use of aspirin; Z68.35 Body mass index [BMI] 35.0-35.9, adult; Z88.8 Allergy status to other drugs, medicaments and biological substances; W18.2XXA Fall in (into) shower or empty bathtub, initial encounter; Y92.009 Unspecified place in unspecified non-institutional (private) residence as the place of occurrence of the external cause
CPT/HCPCS: 71101; 94010; 96372; 99283; 99284; A9270; J1885

== ENCOUNTER 2022-12-24 05:40 | Day surgery (SDC) | payer MEDICARE, MEDICAID ==
[~2022-12-24 05:40] MED LIST changes: -MVI, Adult with Vitamin K 10 ML, Thiamine 100 MG, Folic Acid 1 MG in Lactated Ringers 1... IV ONE; -Ondansetron 4 MG/2 ML SDV IV ONE; -Pantoprazole 40 MG Vial IVPUSH ONE; +Sodium Chloride 0.9% 10 ML Syringe FLUSH SCH
[2022-12-24] MEDS ORDERED: Dextrose 5%-0.45% NaCl 1,000 ML IV SCH ×2 (06:00→07:00)
[2022-12-24] MEDS ORDERED: fentaNYL 100 MCG/2 ML SDV ONE (06:12)
[2022-12-24] MEDS ORDERED: Midazolam 1 MG/ML 2 ML SDV ONE (06:12)
[2022-12-24] MEDS ORDERED: fentaNYL 100 MCG/2 ML SDV IV ONE ×2 (06:25→06:26)
[2022-12-24] MEDS ORDERED: Midazolam 1 MG/ML 2 ML SDV IV ONE ×2 (06:27)
[2022-12-24] MEDS ORDERED: Sodium Chloride 0.9% 10 ML Syringe FLUSH PRN (06:54)
[2022-12-24 08:09] VITALS: BP 102/57; PULSE 70
[2022-12-24] MEDS ORDERED: Sodium Chloride 0.9% 10 ML Syringe FLUSH SCH (09:00)
== END 2022-12-24 08:10 | disposition home or self-care (01) ==
LOC: DL.ENDO 05:40
PROVIDERS: ATTEND Internal Medicine Gastroenterology
DX: K29.50 Unspecified chronic gastritis without bleeding (principal); K22.89 Other specified disease of esophagus; F17.210 Nicotine dependence, cigarettes, uncomplicated; K25.1 Acute gastric ulcer with perforation; E66.09 Other obesity due to excess calories; E11.9 Type 2 diabetes mellitus without complications; I10 Essential (primary) hypertension; Z90.49 Acquired absence of other specified parts of digestive tract; Z88.8 Allergy status to other drugs, medicaments and biological substances; Z79.82 Long term (current) use of aspirin; Z68.29 Body mass index [BMI] 29.0-29.9, adult; Z79.899 Other long term (current) drug therapy
CPT/HCPCS: 43239; 87077; J2250; J3010; J7042; 88305; 88342

== ENCOUNTER 2024-04-22 09:05 | Emergency (ER) | payer MEDICAID, MEDICARE ==
[2024-04-22 09:14] VITALS: BP 148/107; PULSE 73
[2024-04-22 09:33] LABS: APPEARANCE,URINE SLIGHTLY CLOUDY (CLEAR); BILIRUBIN,URINE NEGATIVE (NEGATIVE); COLOR,URINE YELLOW (YELLOW); GLUCOSE,URINE NEGATIVE (NEGATIVE); KETONES,URINE NEGATIVE (NEGATIVE); LEUKOCYTE ESTERASE,URINE SMALL (NEGATIVE); NITRITE,URINE POSITIVE (NEGATIVE); OCCULT BLOOD,URINE NEGATIVE (NEGATIVE); PH,URINE 5.5 (5.0-9.0); PROTEIN,URINE NEGATIVE (NEGATIVE); UROBILINOGEN,URINE 0.2 mg/dL (0.2-1.0)
[2024-04-22 09:41] LABS: AMORPHOUS SEDIMENT,URINE FEW /HPF (NOT SEEN); BACTERIA,URINE MANY /HPF (0-FEW/HPF); EPITHELIAL CELLS,URINE FEW /HPF (NOT SEEN); MUCUS,URINE FEW /LPF (NOT SEEN); RBC,URINE 0-5 /HPF (0-5); WBC,URINE 20-30 /HPF (0-5/HPF)
[2024-04-22 09:45] LABS: BASOPHILS PERCENT AUTO 0.1 % (0.0-1.0); EOSINOPHILS PERCENT AUTO 2.8 % (1.0-3.0); HEMATOCRIT 36.4 % (37.0-47.0); HEMOGLOBIN 11.4 g/dL (12.0-16.0); LYMPHOCYTES PERCENT AUTO 15.3 % (20.5-50.1); MEAN CORPUSCULAR HEMOGLOBIN 30.4 pg (27.0-34.0); MEAN CORPUSCULAR HGB CONC 31.3 g/dL (33.0-35.0); MEAN CORPUSCULAR VOLUME 97.1 fL (80-100); MONOCYTES PERCENT AUTO 5.3 % (2-8); NEUTROPHILS PERCENT AUTO 76.5 % (42.2-75.2); PLATELET COUNT,PLT 185 10^3/uL (150-450); RED BLOOD CELL COUNT 3.75 10^6/uL (4.2-5.4); WHITE BLOOD CELL COUNT,WBC 8.2 10^3/uL (5.0-10.0)
[2024-04-22] MEDS: GI Cocktail Oral Solution 30 ML PO ONE (09:57)
[2024-04-22] MEDS: Sodium Chloride 0.9% 1,000 ML IV ONE (09:58)
[2024-04-22] MEDS: Sodium Chloride 0.9% 10 ML Syringe FLUSH PRN (09:58)
[2024-04-22 10:07] LABS: ALANINE AMINOTRANSFERASE,ALT 42 U/L (14-59); ALBUMIN 3.2 g/dL (3.4-5.0); ALKALINE PHOSPHATASE 176 U/L (46-116); ANION GAP 13.7 mEq/L (7-13); ASPARTATE AMNIOTRANSFERASE,AST 90 U/L (15-37); BILIRUBIN TOTAL 0.6 mg/dL (0.2-1.0); BLOOD UREA NITROGEN,BUN 22 mg/dL (7-18); BUN/CREATININE RATIO 27.8 (No establ ref range); CALCIUM 9.1 mg/dL (8.5-10.1); CARBON DIOXIDE,CO2 27 mmol/L (21-32); CHLORIDE,CL 106 mmol/L (98-107); CREATININE 0.79 mg/dL (0.55-1.02); GLUCOSE RANDOM 102 mg/dL (70-99); POTASSIUM,K 3.7 mmol/L (3.5-5.1); SODIUM,NA 143 mmol/L (136-145)
[2024-04-22 10:09] LABS: A/G RATIO 0.67; ESTIMATED GFR 79 mL/min (>=60)
[2024-04-22] MEDS: Famotidine 20 MG/2 ML SDV IVPUSH ONE (11:02)
[2024-04-22] MEDS: Ketorolac 30 MG/ML SDV IVPUSH ONE (11:05)
[2024-04-22] MEDS: Lactulose Soln 10 GM/15 ML 30 ML UD Cup PO ONE (11:09)
[2024-04-22] MEDS: Take Home: Sulfamethoxazole/Trimethoprim 800-160 MG Tab, 6 Tab Pack PO ONE (11:33)
== END 2024-04-22 11:38 | disposition home or self-care (01) ==
LOC: DL.ED 09:05
DX: K59.00 Constipation, unspecified (principal); N30.00 Acute cystitis without hematuria; I10 Essential (primary) hypertension; J45.909 Unspecified asthma, uncomplicated; K21.9 Gastro-esophageal reflux disease without esophagitis; E11.9 Type 2 diabetes mellitus without complications; M19.90 Unspecified osteoarthritis, unspecified site; E66.9 Obesity, unspecified; F17.210 Nicotine dependence, cigarettes, uncomplicated; Z90.49 Acquired absence of other specified parts of digestive tract; Z79.4 Long term (current) use of insulin; Z79.82 Long term (current) use of aspirin; Z79.899 Other long term (current) drug therapy; Z88.8 Allergy status to other drugs, medicaments and biological substances
CPT/HCPCS: 36415; 74018; 80053; 81001; 85025; 87086; 87088; 87186; 96361; 96374; 96375; 99284; A9270; J1885; J3490; J7030

== ENCOUNTER 2024-06-29 13:23 | Emergency (ER) | payer MEDICARE ==
[2024-06-29 13:19] VITALS: BP 93/51; PULSE 77
[~2024-06-29 13:23] MED LIST changes: -Sodium Chloride 0.9% 10 ML Syringe FLUSH SCH
[2024-06-29 13:38] LABS: HEMATOCRIT 28.7 % (37.0-47.0); HEMOGLOBIN 9.3 g/dL (12.0-16.0); MEAN CORPUSCULAR HEMOGLOBIN 30.8 pg (27.0-34.0); MEAN CORPUSCULAR HGB CONC 32.4 g/dL (33.0-35.0); PLATELET COUNT,PLT 138 10^3/uL (150-450); RED BLOOD CELL COUNT 3.02 10^6/uL (4.2-5.4); WHITE BLOOD CELL COUNT,WBC 7.1 10^3/uL (5.0-10.0)
[2024-06-29] MEDS: Hydrocortisone Sodium Succinate 100 MG/2 ML SDV IVPUSH ONE (13:39)
[2024-06-29 13:42] LABS: BASOPHILS PERCENT AUTO 0.3 % (0.0-1.0); EOSINOPHILS PERCENT AUTO 2.4 % (1.0-3.0); LYMPHOCYTES PERCENT AUTO 40.3 % (20.5-50.1); MONOCYTES PERCENT AUTO 6.7 % (2-8); NEUTROPHILS PERCENT AUTO 50.3 % (42.2-75.2)
[2024-06-29 13:53] LABS: B-TYPE NATRIURETIC PEPTIDE,BNP 20 pg/ml (0-100)
[2024-06-29] MEDS: Sodium Chloride 0.9% 1,000 ML IV ONE (13:53)
[2024-06-29 13:54] LABS: EOSINOPHILS PERCENT MAN 2 % (1-3); LYMPHOCYTES PERCENT MAN 45 % (20-50); MONOCYTES PERCENT MAN 7 % (2-8); SEG NEUTROPHILS PERCENT MAN 46 % (42-75)
[2024-06-29 14:00] LABS: ALANINE AMINOTRANSFERASE,ALT 29 U/L (14-59); ALBUMIN 2.4 g/dL (3.4-5.0); ALKALINE PHOSPHATASE 140 U/L (46-116); ANION GAP 15.9 mEq/L (7-13); ASPARTATE AMNIOTRANSFERASE,AST 74 U/L (15-37); BILIRUBIN TOTAL 0.3 mg/dL (0.2-1.0); BLOOD UREA NITROGEN,BUN 23 mg/dL (7-18); BUN/CREATININE RATIO 19.5 (No establ ref range); CALCIUM 8.7 mg/dL (8.5-10.1); CARBON DIOXIDE,CO2 24 mmol/L (21-32); CHLORIDE,CL 94 mmol/L (98-107); CREATININE 1.18 mg/dL (0.55-1.02); ETHANOL BLOOD MEDICAL 279 mg/dL (0); GLUCOSE RANDOM 175 mg/dL (70-99); MAGNESIUM 1.3 mg/dL (1.8-2.4); POTASSIUM,K 2.9 mmol/L (3.5-5.1); PROTEIN TOTAL,TP 6.5 g/dL (6.4-8.2); SODIUM,NA 131 mmol/L (136-145)
[2024-06-29 14:02] LABS: A/G RATIO 0.59; C-REACTIVE PROTEIN < 0.50 ng/dL (<=0.50); ESTIMATED GFR 49 mL/min (>=60)
[2024-06-29 14:03] LABS: LACTIC ACID 2.6 mmol/L (0.4-2.0)
[2024-06-29] MEDS: Potassium Chloride 10 MEQ Tab.ER PO ONE (14:10)
[2024-06-29] MEDS: Magnesium Sulfate/Water Premix 2 GM in Premix Bag 1 BAG IV ONE (14:10)
== END 2024-06-29 15:15 | disposition home or self-care (01) ==
LOC: DL.ED 13:23
DX: F10.120 Alcohol abuse with intoxication, uncomplicated (principal); E83.42 Hypomagnesemia; E87.6 Hypokalemia; E86.0 Dehydration; E11.9 Type 2 diabetes mellitus without complications; J45.909 Unspecified asthma, uncomplicated; E78.00 Pure hypercholesterolemia, unspecified; E66.9 Obesity, unspecified; K21.9 Gastro-esophageal reflux disease without esophagitis; Z86.16 Personal history of COVID-19; Z79.4 Long term (current) use of insulin; Z79.82 Long term (current) use of aspirin; Z79.899 Other long term (current) drug therapy; Z88.8 Allergy status to other drugs, medicaments and biological substances
CPT/HCPCS: 36415; 80053; 80307; 83605; 83735; 83880; 84484; 85025; 86140; 87428-QW; 93005; 93010; 96365; 96375; 99284; 99285-25; A9270-GY; J1720; J3475; J7030

== ENCOUNTER 2024-07-02 17:12 | Inpatient (IN) | payer MEDICARE ==
[2024-07-02] MEDS ORDERED: Sodium Chloride 0.9% 10 ML Syringe FLUSH PRN (17:28)
[2024-07-02 18:17] LABS: BASOPHILS PERCENT AUTO 0.2 % (0.0-1.0); EOSINOPHILS PERCENT AUTO 2.6 % (1.0-3.0); HEMATOCRIT 30.4 % (37.0-47.0); HEMOGLOBIN 9.7 g/dL (12.0-16.0); LYMPHOCYTES PERCENT AUTO 34.5 % (20.5-50.1); MEAN CORPUSCULAR HEMOGLOBIN 30.4 pg (27.0-34.0); MEAN CORPUSCULAR HGB CONC 31.9 g/dL (33.0-35.0); MEAN CORPUSCULAR VOLUME 95.3 fL (80-100); MONOCYTES PERCENT AUTO 12.6 % (2-8); NEUTROPHILS PERCENT AUTO 50.1 % (42.2-75.2); PLATELET COUNT,PLT 144 10^3/uL (150-450); RED BLOOD CELL COUNT 3.19 10^6/uL (4.2-5.4); WHITE BLOOD CELL COUNT,WBC 6.2 10^3/uL (5.0-10.0)
[2024-07-02 18:41] LABS: PTT,PARTIAL THROMBOPLSTIN TIME 24.5 SEC (22.0-34.0)
[2024-07-02 18:42] LABS: APPEARANCE,URINE SLIGHTLY CLOUDY (CLEAR); BILIRUBIN,URINE NEGATIVE (NEGATIVE); COLOR,URINE YELLOW (YELLOW); GLUCOSE,URINE NEGATIVE (NEGATIVE); KETONES,URINE TRACE (NEGATIVE); LEUKOCYTE ESTERASE,URINE MODERATE (NEGATIVE); NITRITE,URINE POSITIVE (NEGATIVE); OCCULT BLOOD,URINE NEGATIVE (NEGATIVE); PROTEIN,URINE NEGATIVE (NEGATIVE); UROBILINOGEN,URINE 0.2 mg/dL (0.2-1.0)
[2024-07-02 18:45] LABS: AMPHETAMINES,URINE NEGATIVE (NEGATIVE); BARBITURATES,URINE NEGATIVE (NEGATIVE); BENZODIAZEPINE,URINE NEGATIVE (NEGATIVE); MDMA (ECSTASY), URINE NEGATIVE (NEGATIVE); METHADONE,URINE NEGATIVE (NEGATIVE); METHAMPHETAMINES,URINE NEGATIVE (NEGATIVE); OPIATES,URINE NEGATIVE (NEGATIVE); OXYCODONE,URINE NEGATIVE (NEGATIVE); PHENCYCLIDINE,URINE NEGATIVE (NEGATIVE); TCA,URINE NEGATIVE (NEGATIVE)
[2024-07-02] MEDS: Sodium Chloride 0.9% 1,000 ML IV ONE (18:45)
[2024-07-02 18:51] LABS: B-TYPE NATRIURETIC PEPTIDE,BNP 22 pg/ml (0-100)
[2024-07-02 18:52] LABS: ALANINE AMINOTRANSFERASE,ALT 30 U/L (14-59); ALBUMIN 2.6 g/dL (3.4-5.0); ALKALINE PHOSPHATASE 143 U/L (46-116); ANION GAP 16.4 mEq/L (7-13); ASPARTATE AMNIOTRANSFERASE,AST 65 U/L (15-37); BILIRUBIN TOTAL 0.4 mg/dL (0.2-1.0); BLOOD UREA NITROGEN,BUN 13 mg/dL (7-18); BUN/CREATININE RATIO 22.8 (No establ ref range); CALCIUM 8.7 mg/dL (8.5-10.1); CARBON DIOXIDE,CO2 23 mmol/L (21-32); CHLORIDE,CL 99 mmol/L (98-107); CREATINE KINASE,CK 32 U/L (16-191); CREATININE 0.57 mg/dL (0.55-1.02); GLUCOSE RANDOM 136 mg/dL (70-99); MAGNESIUM 1.4 mg/dL (1.8-2.4); POTASSIUM,K 3.4 mmol/L (3.5-5.1); PROTEIN TOTAL,TP 6.7 g/dL (6.4-8.2); SODIUM,NA 135 mmol/L (136-145)
[2024-07-02 18:54] LABS: BACTERIA,URINE MANY /HPF (0-FEW/HPF); EPITHELIAL CELLS,URINE FEW /HPF (NOT SEEN); RBC,URINE 0-5 /HPF (0-5); WBC,URINE 20-30 /HPF (0-5/HPF)
[2024-07-02 18:55] LABS: A/G RATIO 0.63; ESTIMATED GFR 96 mL/min (>=60); ETHANOL BLOOD MEDICAL 320 mg/dL (0); LACTIC ACID 2.6 mmol/L (0.4-2.0)
[2024-07-02] MEDS: Potassium Chloride 20 MEQ in Premix Bag 1 BAG IV ONE (19:06)
[2024-07-02] MEDS: Magnesium Sulfate/Water Premix 2 GM in Premix Bag 1 BAG IV ONE (19:06)
[2024-07-02] MEDS ORDERED: Albuterol/Ipratropium 3.0-0.5 MG/3 ML Neb Soln NEB PRN (20:26)
[2024-07-02] MEDS ORDERED: Ondansetron 4 MG/2 ML SDV IVPUSH PRN (20:26)
[2024-07-02] MEDS ORDERED: HYDROmorphone 0.5 MG/0.5 ML Syringe IVPUSH PRN (20:26)
[2024-07-02] MEDS ORDERED: Naloxone 2 MG/2 ML Syringe IVPUSH PRN (20:26)
[2024-07-02] MEDS ORDERED: Magnesium Hydroxide 400 MG/5 ML Susp 30 ML Cup PO PRN (20:26)
[2024-07-02] MEDS ORDERED: LORazepam 2 MG/ML SDV IVPUSH PRN (20:31)
[2024-07-02] MEDS ORDERED: Flumazenil 0.1 MG/ML 5 ML MDV IVPUSH PRN (20:31)
[2024-07-02] MEDS ORDERED: hydrALAZINE 20 MG/ML SDV IVPUSH PRN (20:31)
[2024-07-02] MEDS ORDERED: traMADol 50 MG Tab PO PRN (20:31)
[2024-07-02] MEDS ORDERED: Metoprolol Tartrate 5 MG/5 ML SDV IVPUSH PRN (20:31)
[2024-07-02] MEDS ORDERED: Aluminum Hydroxide/Magnesium Hydroxide/Simethicone Susp 30 ML Cup PO PRN (20:39)
[2024-07-02] MEDS ORDERED: Glucagon,Human Recombinant 1 MG Vial IM PRN (21:04)
[2024-07-02] MEDS ORDERED: 50% Dextrose in Water 50 ML Syringe IVPUSH PRN (21:04)
[2024-07-02] MEDS ORDERED: Nystatin Topical Powder 60 GM Bottle TOP PRN (21:07)
[2024-07-02] MEDS ORDERED: Ziprasidone Mesylate 20 MG Vial IM PRN (21:18)
[2024-07-02] MEDS: Potassium Chloride 10 MEQ Tab.ER PO ONE (21:44)
[2024-07-02] MEDS: Latanoprost 0.005% Ophth Soln 2.5 ML Bottle EYEBOTH SCH (21:45)
[2024-07-02] MEDS: MVI, Adult with Vitamin K 10 ML, Folic Acid 1 MG, Thiamine 100 MG in Lactated Ringers 1... IV ONE (21:47)
[2024-07-02] MEDS: Ferrous Sulfate 325 MG Tab PO SCH ×2 (22:19→22:30)
[2024-07-02] MEDS: Ascorbic Acid 500 MG Tab PO SCH (22:19)
[2024-07-03 06:31] LABS: BASOPHILS PERCENT AUTO 0.2 % (0.0-1.0); HEMATOCRIT 25.5 % (37.0-47.0); HEMOGLOBIN 8.2 g/dL (12.0-16.0); LYMPHOCYTES PERCENT AUTO 25.7 % (20.5-50.1); MEAN CORPUSCULAR HEMOGLOBIN 31.1 pg (27.0-34.0); MEAN CORPUSCULAR HGB CONC 32.2 g/dL (33.0-35.0); MEAN CORPUSCULAR VOLUME 96.6 fL (80-100); MONOCYTES PERCENT AUTO 12.8 % (2-8); NEUTROPHILS PERCENT AUTO 58.3 % (42.2-75.2); PLATELET COUNT,PLT 125 10^3/uL (150-450); RED BLOOD CELL COUNT 2.64 10^6/uL (4.2-5.4); WHITE BLOOD CELL COUNT,WBC 4.1 10^3/uL (5.0-10.0)
[2024-07-03 07:16] LABS: ALANINE AMINOTRANSFERASE,ALT 21 U/L (14-59); ALBUMIN 2.1 g/dL (3.4-5.0); ALKALINE PHOSPHATASE 135 U/L (46-116); ANION GAP 15.4 mEq/L (7-13); ASPARTATE AMNIOTRANSFERASE,AST 42 U/L (15-37); BILIRUBIN TOTAL 0.3 mg/dL (0.2-1.0); BLOOD UREA NITROGEN,BUN 9 mg/dL (7-18); BUN/CREATININE RATIO 15.5 (No establ ref range); CALCIUM 8.2 mg/dL (8.5-10.1); CARBON DIOXIDE,CO2 23 mmol/L (21-32); CHLORIDE,CL 102 mmol/L (98-107); CREATININE 0.58 mg/dL (0.55-1.02); EST CRCL DRUG DOSING (CG) 77.73 mL/min; GLUCOSE RANDOM 152 mg/dL (70-99); MAGNESIUM 1.6 mg/dL (1.8-2.4); POTASSIUM,K 4.4 mmol/L (3.5-5.1); PROTEIN TOTAL,TP 5.6 g/dL (6.4-8.2); SODIUM,NA 136 mmol/L (136-145); T4 FREE 0.99 ng/dL (0.76-1.46); TSH ULTRASENSITIVE 0.92 uIU/mL (0.36-3.74)
[2024-07-03 07:18] LABS: C-REACTIVE PROTEIN < 0.50 ng/dL (<=0.50); ESTIMATED GFR 95 mL/min (>=60)
[2024-07-03] MEDS: Insulin Lispro 100 Units/ML 3 ML Vial SUBCUT SCH (08:06)
[2024-07-03] MEDS: Magnesium Sulfate/Water Premix 2 GM in Premix Bag 1 BAG IV ONE (08:34)
[2024-07-03] MEDS: Sennosides/Docusate Sodium 50-8.6 MG Tab PO PRN (08:34)
[2024-07-03] MEDS: cefTRIAXone 1 GM Vial IVPUSH SCH (08:34)
[2024-07-03] MEDS: Saccharomyces Boulardii (Probiotic) 250 MG Cap PO SCH (08:34)
[2024-07-03] MEDS: Acetaminophen 325 MG Tab PO PRN (08:36)
[2024-07-03] MEDS: hydrOXYzine HCl 25 MG Tab PO PRN (11:06)
[2024-07-03] MEDS: Furosemide 40 MG Tab PO ONE (11:06)
[2024-07-03] MEDS ORDERED: Non-Formulary Medication 1 Each (Alendronate Sodium [Alendronate Sodium] 70 MG Tablet) PO SCH (13:45)
[2024-07-03] MEDS: Pantoprazole 40 MG Tab.CR PO SCH (14:15)
[2024-07-03] MEDS: Aspirin 81 MG Tab.Chew PO SCH (14:15)
[2024-07-03] MEDS: Midodrine 5 MG Tab PO ONE (14:16)
[2024-07-03] MEDS: Metoprolol Succinate 50 MG Tab.ER PO SCH (14:20)
[2024-07-03] MEDS: Non-Formulary Medication 1 Each (Insulin Detemir [Levemir] 100 UNIT/ML Ml) SQ SCH (14:20)
[2024-07-03] MEDS: Midodrine 2.5 MG Tab ONE (14:21)
[2024-07-03] MEDS ORDERED: Ferrous Sulfate 325 MG Tab PO SCH (21:00)
[2024-07-03] MEDS: Insulin Glarg,Human.Rec.Analog 100 Unit/ML 10 ML Vial SUBCUT SCH (21:09)
[2024-07-03] MEDS: Midodrine 5 MG Tab PO SCH (21:13)
[2024-07-03] MEDS: Latanoprost 0.005% Ophth Soln 2.5 ML Bottle EYEBOTH SCH (21:14)
[2024-07-03] MEDS: Melatonin 3 MG Tab PO PRN (21:15)
[2024-07-04 07:05] LABS: BASOPHILS PERCENT AUTO 0.2 % (0.0-1.0); EOSINOPHILS PERCENT AUTO 2.7 % (1.0-3.0); HEMATOCRIT 26.1 % (37.0-47.0); HEMOGLOBIN 8.2 g/dL (12.0-16.0); LYMPHOCYTES PERCENT AUTO 28.8 % (20.5-50.1); MEAN CORPUSCULAR HEMOGLOBIN 30.9 pg (27.0-34.0); MEAN CORPUSCULAR HGB CONC 31.4 g/dL (33.0-35.0); MEAN CORPUSCULAR VOLUME 98.5 fL (80-100); MONOCYTES PERCENT AUTO 12.3 % (2-8); PLATELET COUNT,PLT 135 10^3/uL (150-450); RED BLOOD CELL COUNT 2.65 10^6/uL (4.2-5.4); WHITE BLOOD CELL COUNT,WBC 5.2 10^3/uL (5.0-10.0)
[2024-07-04 07:38] LABS: ANION GAP 9.8 mEq/L (7-13); BILIRUBIN TOTAL 0.5 mg/dL (0.2-1.0); BUN/CREATININE RATIO 15.1 (No establ ref range); C-REACTIVE PROTEIN 1.18 ng/dL (<=0.50); CALCIUM 8.4 mg/dL (8.5-10.1); CREATININE 0.73 mg/dL (0.55-1.02); EST CRCL DRUG DOSING (CG) 61.76 mL/min; MAGNESIUM 1.6 mg/dL (1.8-2.4); POTASSIUM,K 3.8 mmol/L (3.5-5.1); PROTEIN TOTAL,TP 5.3 g/dL (6.4-8.2)
[2024-07-04 07:41] LABS: A/G RATIO 0.61
[2024-07-04] MEDS: Polyethylene Glycol 3350 Powder 17 GM Packet PO PRN (08:58)
[2024-07-04] MEDS: Magnesium Oxide 400 MG Tab PO SCH (08:58)
[2024-07-04] MEDS: Cholecalciferol (Vitamin D3) 25 MCG Tab PO SCH (08:59)
[2024-07-04] MEDS: Metoprolol Succinate 25 MG Tab.ER PO SCH (08:59)
[2024-07-04] MEDS: Losartan 25 MG Tab PO SCH (08:59)
[2024-07-04] MEDS: Magnesium Sulfate/Water Premix 2 GM in Premix Bag 1 BAG IV ONE ×2 (09:04→20:55)
[2024-07-04] MEDS: Sodium Chloride 0.9% 1,000 ML IV SCH (20:52)
[2024-07-04] MEDS ORDERED: hydrOXYzine HCl 10 MG Tab PO PRN (20:52)
[2024-07-04] MEDS: Albumin Human 50 GM in Premix Bag 1 BAG IV ONE (20:53)
[2024-07-04] MEDS: Cephalexin 500 MG Cap PO SCH (20:57)
[2024-07-04] MEDS: Mirtazapine 15 MG Tab PO SCH (20:58)
[2024-07-05] MEDS: Cholecalciferol (Vitamin D3) 25 MCG Tab PO SCH (05:05)
[2024-07-05 06:58] LABS: BASOPHILS PERCENT AUTO 0.3 % (0.0-1.0); EOSINOPHILS PERCENT AUTO 2.6 % (1.0-3.0); HEMATOCRIT 24.1 % (37.0-47.0); HEMOGLOBIN 7.6 g/dL (12.0-16.0); LYMPHOCYTES PERCENT AUTO 30.8 % (20.5-50.1); MEAN CORPUSCULAR HEMOGLOBIN 31.3 pg (27.0-34.0); MEAN CORPUSCULAR HGB CONC 31.5 g/dL (33.0-35.0); MEAN CORPUSCULAR VOLUME 99.2 fL (80-100); MONOCYTES PERCENT AUTO 10.7 % (2-8); NEUTROPHILS PERCENT AUTO 55.6 % (42.2-75.2); PLATELET COUNT,PLT 121 10^3/uL (150-450); RED BLOOD CELL COUNT 2.43 10^6/uL (4.2-5.4); WHITE BLOOD CELL COUNT,WBC 3.5 10^3/uL (5.0-10.0)
[2024-07-05 07:20] LABS: ALBUMIN 2.6 g/dL (3.4-5.0); ANION GAP 10.9 mEq/L (7-13); BILIRUBIN TOTAL 0.5 mg/dL (0.2-1.0); BUN/CREATININE RATIO 18.3 (No establ ref range); C-REACTIVE PROTEIN 1.64 ng/dL (<=0.50); CALCIUM 8.7 mg/dL (8.5-10.1); CREATININE 0.71 mg/dL (0.55-1.02); EST CRCL DRUG DOSING (CG) 63.5 mL/min; MAGNESIUM 2.1 mg/dL (1.8-2.4); POTASSIUM,K 3.9 mmol/L (3.5-5.1); PROTEIN TOTAL,TP 5.4 g/dL (6.4-8.2)
[2024-07-05 07:22] LABS: A/G RATIO 0.93
[2024-07-06 06:52] LABS: BASOPHILS PERCENT AUTO 0.3 % (0.0-1.0); EOSINOPHILS PERCENT AUTO 2.1 % (1.0-3.0); HEMATOCRIT 26.8 % (37.0-47.0); HEMOGLOBIN 8.4 g/dL (12.0-16.0); MEAN CORPUSCULAR HEMOGLOBIN 31.3 pg (27.0-34.0); MEAN CORPUSCULAR HGB CONC 31.3 g/dL (33.0-35.0); MONOCYTES PERCENT AUTO 12.1 % (2-8); NEUTROPHILS PERCENT AUTO 59.5 % (42.2-75.2); PLATELET COUNT,PLT 153 10^3/uL (150-450); RED BLOOD CELL COUNT 2.68 10^6/uL (4.2-5.4); WHITE BLOOD CELL COUNT,WBC 3.8 10^3/uL (5.0-10.0)
[2024-07-06 08:37] LABS: ALBUMIN 2.6 g/dL (3.4-5.0); BILIRUBIN TOTAL 0.4 mg/dL (0.2-1.0); BUN/CREATININE RATIO 20.6 (No establ ref range); C-REACTIVE PROTEIN 1.11 ng/dL (<=0.50); CALCIUM 8.8 mg/dL (8.5-10.1); CREATININE 0.68 mg/dL (0.55-1.02); EST CRCL DRUG DOSING (CG) 66.3 mL/min; MAGNESIUM 1.7 mg/dL (1.8-2.4)
[2024-07-06 08:38] LABS: A/G RATIO 0.76
[2024-07-06 14:03] VITALS: BP 109/57; PULSE 73
== END 2024-07-06 13:55 | disposition home or self-care (01) | DRG 641 ==
LOC: DL.ED 17:12 → DL.MS 19:37 → DL.ED 19:43 → OBSVTOIN 07-03 16:31 → DL.MS 07-05 11:19
PROVIDERS: ADMIT Internal Medicine; ATTEND Internal Medicine
DX: R62.7 Adult failure to thrive (principal); N39.0 Urinary tract infection, site not specified; E87.1 Hypo-osmolality and hyponatremia; E87.20 Acidosis, unspecified; E44.0 Moderate protein-calorie malnutrition; Z66 Do not resuscitate; F32.A Depression, unspecified; H54.7 Unspecified visual loss; I10 Essential (primary) hypertension; K21.9 Gastro-esophageal reflux disease without esophagitis; E11.9 Type 2 diabetes mellitus without complications; E66.9 Obesity, unspecified; D64.9 Anemia, unspecified; E87.6 Hypokalemia; E83.42 Hypomagnesemia; E78.5 Hyperlipidemia, unspecified; J45.909 Unspecified asthma, uncomplicated; E11.39 Type 2 diabetes mellitus with other diabetic ophthalmic complication; H42 Glaucoma in diseases classified elsewhere; M19.90 Unspecified osteoarthritis, unspecified site; F41.9 Anxiety disorder, unspecified; F10.120 Alcohol abuse with intoxication, uncomplicated; R15.9 Full incontinence of feces; R32 Unspecified urinary incontinence; E11.65 Type 2 diabetes mellitus with hyperglycemia; E88.09 Other disorders of plasma-protein metabolism, not elsewhere classified; B37.9 Candidiasis, unspecified; E55.9 Vitamin D deficiency, unspecified; B96.1 Klebsiella pneumoniae [K. pneumoniae] as the cause of diseases classified elsewhere; I95.9 Hypotension, unspecified; Z68.25 Body mass index [BMI] 25.0-25.9, adult; Z88.8 Allergy status to other drugs, medicaments and biological substances; Z79.4 Long term (current) use of insulin; Z79.899 Other long term (current) drug therapy; Z79.51 Long term (current) use of inhaled steroids; Z79.82 Long term (current) use of aspirin; Z87.81 Personal history of (healed) traumatic fracture; Z98.890 Other specified postprocedural states; Z87.891 Personal history of nicotine dependence
CPT/HCPCS: 36415; 70450; 71045; 72125; 80053; 80305-QW; 80307; 81001; 82306; 82550; 82947; 83605; 83735; 83880; 84439; 84443; 84484; 85025; 85610; 85730; 86140; 87040; 87086; 87088; 87186; 87428-QW; 93005; 93010; 96365; 96366; 96367; 96368; 96375; 97110-GO; 97116-GP; 97161-GP; 97165-GO; 97530-GO; 97530-GP; 99223; 99232; 99239; 99285; 99285-25; A9270-GY; G0378; J0696; J1815-GY; J3411; J3475; J3480; J3490; J7030; J7120; P9047

== ENCOUNTER 2024-11-02 11:58 | Emergency (ER) | payer MEDICARE ==
[2024-11-02] MEDS ORDERED: Sodium Chloride 0.9% 10 ML Syringe FLUSH PRN (12:08)
[2024-11-02 12:38] LABS: BASOPHILS PERCENT AUTO 0.2 % (0.0-1.0); EOSINOPHILS PERCENT AUTO 0.2 % (1.0-3.0); HEMATOCRIT 33.1 % (37.0-47.0); HEMOGLOBIN 10.3 g/dL (12.0-16.0); LYMPHOCYTES PERCENT AUTO 11.3 % (20.5-50.1); MEAN CORPUSCULAR HEMOGLOBIN 31.8 pg (27.0-34.0); MEAN CORPUSCULAR HGB CONC 31.1 g/dL (33.0-35.0); MEAN CORPUSCULAR VOLUME 102.2 fL (80-100); MONOCYTES PERCENT AUTO 9.4 % (2-8); NEUTROPHILS PERCENT AUTO 78.9 % (42.2-75.2); PLATELET COUNT,PLT 222 10^3/uL (150-450); RED BLOOD CELL COUNT 3.24 10^6/uL (4.2-5.4); WHITE BLOOD CELL COUNT,WBC 5.7 10^3/uL (5.0-10.0)
[2024-11-02 12:58] LABS: B-TYPE NATRIURETIC PEPTIDE,BNP 206 pg/ml (0-100)
[2024-11-02 13:00] LABS: A/G RATIO 0.58; ALANINE AMINOTRANSFERASE,ALT 35 U/L (14-59); ALBUMIN 2.6 g/dL (3.4-5.0); ALKALINE PHOSPHATASE 174 U/L (46-116); ANION GAP 14.2 mEq/L (7-13); ASPARTATE AMNIOTRANSFERASE,AST 53 U/L (15-37); BILIRUBIN TOTAL 0.6 mg/dL (0.2-1.0); BLOOD UREA NITROGEN,BUN 9 mg/dL (7-18); BUN/CREATININE RATIO 9.9 (No establ ref range); CARBON DIOXIDE,CO2 28 mmol/L (21-32); CHLORIDE,CL 103 mmol/L (98-107); CREATININE 0.91 mg/dL (0.55-1.02); ESTIMATED GFR 67 mL/min (>=60); ETHANOL BLOOD MEDICAL < 3 mg/dL (0); GLUCOSE RANDOM 223 mg/dL (70-99); MAGNESIUM 1.5 mg/dL (1.8-2.4); POTASSIUM,K 4.2 mmol/L (3.5-5.1); PROTEIN TOTAL,TP 7.1 g/dL (6.4-8.2); SODIUM,NA 141 mmol/L (136-145)
[2024-11-02] MEDS: Magnesium Sulf/Wat 2 GM/50 mL 2 GM in Premix Bag 1 BAG IV ONE (13:20)
[2024-11-02 13:24] LABS: AMPHETAMINES,URINE NEGATIVE (NEGATIVE); BARBITURATES,URINE NEGATIVE (NEGATIVE); BENZODIAZEPINE,URINE POSITIVE (NEGATIVE); MDMA (ECSTASY), URINE NEGATIVE (NEGATIVE); METHADONE,URINE NEGATIVE (NEGATIVE); METHAMPHETAMINES,URINE NEGATIVE (NEGATIVE); OPIATES,URINE NEGATIVE (NEGATIVE); OXYCODONE,URINE NEGATIVE (NEGATIVE); PHENCYCLIDINE,URINE NEGATIVE (NEGATIVE); TCA,URINE NEGATIVE (NEGATIVE)
[2024-11-02 15:17] VITALS: BP 125/56; PULSE 87
== END 2024-11-02 15:15 | disposition home or self-care (01) ==
LOC: DL.ED 11:58
DX: E83.42 Hypomagnesemia (principal); R53.81 Other malaise; E63.9 Nutritional deficiency, unspecified; I10 Essential (primary) hypertension; E11.9 Type 2 diabetes mellitus without complications; Z88.8 Allergy status to other drugs, medicaments and biological substances; Z79.899 Other long term (current) drug therapy; Z79.4 Long term (current) use of insulin
CPT/HCPCS: 36415; 70450; 80053; 80305-QW; 80307; 82272; 83735; 83880; 84484; 85025; 85610; 93005; 93010; 96365; 99284; 99285-25; J3475

== ENCOUNTER 2024-11-11 13:18 | Inpatient (IN) | payer MEDICARE ==
[2024-11-11 14:02] LABS: BASOPHILS PERCENT AUTO 0.1 % (0.0-1.0); EOSINOPHILS PERCENT AUTO 0.8 % (1.0-3.0); HEMATOCRIT 32.9 % (37.0-47.0); HEMOGLOBIN 10.7 g/dL (12.0-16.0); MEAN CORPUSCULAR HGB CONC 32.5 g/dL (33.0-35.0); MEAN CORPUSCULAR VOLUME 101.5 fL (80-100); MONOCYTES PERCENT AUTO 6.5 % (2-8); NEUTROPHILS PERCENT AUTO 79.6 % (42.2-75.2); PLATELET COUNT,PLT 172 10^3/uL (150-450); RED BLOOD CELL COUNT 3.24 10^6/uL (4.2-5.4); WHITE BLOOD CELL COUNT,WBC 8.7 10^3/uL (5.0-10.0)
[2024-11-11 14:23] LABS: PROTHROMBIN TIME 10.2 SEC (9.0-12.0); PTT,PARTIAL THROMBOPLSTIN TIME 24.7 SEC (22.0-34.0)
[2024-11-11 14:39] LABS: ALBUMIN 2.8 g/dL (3.4-5.0); BILIRUBIN TOTAL 0.3 mg/dL (0.2-1.0); BUN/CREATININE RATIO 20.7 (No establ ref range); C-REACTIVE PROTEIN 1.58 ng/dL (<=0.50); CALCIUM 8.8 mg/dL (8.5-10.1); CREATININE 0.58 mg/dL (0.55-1.02); EST CRCL DRUG DOSING (CG) 77.73 mL/min; MAGNESIUM 1.3 mg/dL (1.8-2.4); PROTEIN TOTAL,TP 7.6 g/dL (6.4-8.2)
[2024-11-11 14:44] LABS: A/G RATIO 0.58
[2024-11-11 14:46] LABS: LACTIC ACID 3.8 mmol/L (0.4-2.0)
[2024-11-11] MEDS: Sodium Chloride 0.9% 1,000 ML IV ONE ×2 (15:11→16:49)
[2024-11-11] MEDS: Magnesium Sulf/Wat 2 GM/50 mL 2 GM in Premix Bag 1 BAG IV ONE ×2 (15:11→21:53)
[2024-11-11 16:04] LABS: APPEARANCE,URINE SLIGHTLY CLOUDY (CLEAR); BILIRUBIN,URINE NEGATIVE (NEGATIVE); COLOR,URINE YELLOW (YELLOW); GLUCOSE,URINE NEGATIVE (NEGATIVE); KETONES,URINE NEGATIVE (NEGATIVE); LEUKOCYTE ESTERASE,URINE LARGE (NEGATIVE); NITRITE,URINE POSITIVE (NEGATIVE); OCCULT BLOOD,URINE TRACE-INTACT (NEGATIVE); PROTEIN,URINE 30 (NEGATIVE); UROBILINOGEN,URINE 0.2 mg/dL (0.2-1.0)
[2024-11-11 16:08] LABS: AMPHETAMINES,URINE NEGATIVE (NEGATIVE); BARBITURATES,URINE NEGATIVE (NEGATIVE); BENZODIAZEPINE,URINE POSITIVE (NEGATIVE); MDMA (ECSTASY), URINE NEGATIVE (NEGATIVE); METHADONE,URINE NEGATIVE (NEGATIVE); METHAMPHETAMINES,URINE NEGATIVE (NEGATIVE); OPIATES,URINE NEGATIVE (NEGATIVE); OXYCODONE,URINE NEGATIVE (NEGATIVE); PHENCYCLIDINE,URINE NEGATIVE (NEGATIVE); TCA,URINE NEGATIVE (NEGATIVE)
[2024-11-11] MEDS: cefTRIAXone 1 GM Vial IVPUSH ONE (16:49)
[2024-11-11] MEDS ORDERED: Metoprolol Tartrate 5 MG/5 ML SDV IVPUSH PRN (17:35)
[2024-11-11] MEDS ORDERED: hydrALAZINE 20 MG/ML SDV IVPUSH PRN (17:35)
[2024-11-11] MEDS ORDERED: Polyethylene Glycol 3350 Powder 17 GM Packet PO PRN (17:36)
[2024-11-11] MEDS ORDERED: Ondansetron 4 MG/2 ML SDV IVPUSH PRN (17:36)
[2024-11-11] MEDS ORDERED: Naloxone 2 MG/2 ML Syringe IVPUSH PRN (17:36)
[2024-11-11] MEDS ORDERED: Magnesium Hydroxide 400 MG/5 ML Susp 30 ML Cup PO PRN (17:36)
[2024-11-11] MEDS ORDERED: Albuterol/Ipratropium 3.0-0.5 MG/3 ML Neb Soln NEB PRN (17:36)
[2024-11-11] MEDS ORDERED: HYDROmorphone 0.5 MG/0.5 ML Syringe IVPUSH PRN (17:36)
[2024-11-11] MEDS ORDERED: Sennosides/Docusate Sodium 50-8.6 MG Tab PO PRN (17:36)
[2024-11-11] MEDS: MVI, Adult with Vitamin K 10 ML, Folic Acid 1 MG, Thiamine 100 MG in Lactated Ringers 1... IV ONE (18:33)
[2024-11-11] MEDS: Thiamine 100 MG in Sodium Chloride 0.9% 100 ML IV ONE (18:35)
[2024-11-11 19:30] LABS: RBC,URINE 0-5 /HPF (0-5)
[2024-11-11 19:31] LABS: BACTERIA,URINE MANY /HPF (0-FEW/HPF); EPITHELIAL CELLS,URINE RARE /HPF (NOT SEEN)
[2024-11-11] MEDS ORDERED: LORazepam 2 MG/ML SDV IVPUSH PRN (20:56)
[2024-11-11] MEDS ORDERED: Mirtazapine 15 MG Tab PO SCH (21:00)
[2024-11-11] MEDS: Hydrocortisone 1% Crm 30 GM Tube TOP SCH (22:05)
[2024-11-11] MEDS: Folic Acid 1 MG Tab PO SCH (22:05)
[2024-11-11] MEDS: Temazepam 15 MG Cap PO PRN (22:28)
[2024-11-12] MEDS: Sodium Chloride 0.9% 10 ML Syringe FLUSH PRN (01:15)
[2024-11-12] MEDS: Hydrocortisone Sodium Succinate 100 MG/2 ML SDV IVPUSH ONE (01:15)
[2024-11-12] MEDS: Albumin Human 25 GM in Premix Bag 1 BAG IV SCH (01:35)
[2024-11-12] MEDS: Hydrocortisone Sodium Succinate 100 MG/2 ML SDV IVPUSH SCH (06:21)
[2024-11-12 06:26] LABS: MEAN CORPUSCULAR HEMOGLOBIN 33.1 pg (27.0-34.0); MEAN CORPUSCULAR HGB CONC 32.1 g/dL (33.0-35.0); MEAN CORPUSCULAR VOLUME 102.9 fL (80-100); MONOCYTES PERCENT AUTO 2.9 % (2-8); NEUTROPHILS PERCENT AUTO 86.1 % (42.2-75.2); PLATELET COUNT,PLT 136 10^3/uL (150-450); RED BLOOD CELL COUNT 2.72 10^6/uL (4.2-5.4); WHITE BLOOD CELL COUNT,WBC 4.1 10^3/uL (5.0-10.0)
[2024-11-12] MEDS: Acetaminophen 325 MG Tab PO PRN (06:31)
[2024-11-12 06:52] LABS: ALBUMIN 3.2 g/dL (3.4-5.0); ANION GAP 15.2 mEq/L (7-13); BILIRUBIN TOTAL 0.8 mg/dL (0.2-1.0); BUN/CREATININE RATIO 18.8 (No establ ref range); C-REACTIVE PROTEIN 2.05 ng/dL (<=0.50); CALCIUM 8.5 mg/dL (8.5-10.1); CREATININE 0.69 mg/dL (0.55-1.02); EST CRCL DRUG DOSING (CG) 65.34 mL/min; MAGNESIUM 2.2 mg/dL (1.8-2.4); POTASSIUM,K 4.2 mmol/L (3.5-5.1)
[2024-11-12 06:54] LABS: A/G RATIO 0.84
[2024-11-12] MEDS: Saccharomyces Boulardii (Probiotic) 250 MG Cap PO SCH (08:16)
[2024-11-12] MEDS: Midodrine 5 MG Tab PO SCH (08:16)
[2024-11-12] MEDS: cefTRIAXone 1 GM Vial IVPUSH SCH (08:17)
[2024-11-12] MEDS ORDERED: Midodrine 5 MG Tab PO SCH (09:00)
[2024-11-12] MEDS: Lactated Ringers 1,000 ML IV SCH (09:24)
[2024-11-12] MEDS: Multivitamins with Iron/Calcium/Folic Acid/Minerals Tab PO SCH (20:21)
[2024-11-12] MEDS: Thiamine 100 MG Tab PO SCH (20:21)
[2024-11-12] MEDS: Mirtazapine 15 MG Tab PO SCH (20:21)
[2024-11-13 06:21] LABS: HEMATOCRIT 28.3 % (37.0-47.0); HEMOGLOBIN 8.9 g/dL (12.0-16.0); LYMPHOCYTES PERCENT AUTO 11.2 % (20.5-50.1); MEAN CORPUSCULAR HEMOGLOBIN 32.5 pg (27.0-34.0); MEAN CORPUSCULAR HGB CONC 31.4 g/dL (33.0-35.0); MEAN CORPUSCULAR VOLUME 103.3 fL (80-100); MONOCYTES PERCENT AUTO 4.9 % (2-8); NEUTROPHILS PERCENT AUTO 83.9 % (42.2-75.2); PLATELET COUNT,PLT 142 10^3/uL (150-450); RED BLOOD CELL COUNT 2.74 10^6/uL (4.2-5.4); WHITE BLOOD CELL COUNT,WBC 4.9 10^3/uL (5.0-10.0)
[2024-11-13 06:52] LABS: ALBUMIN 2.9 g/dL (3.4-5.0); ANION GAP 12.3 mEq/L (7-13); BILIRUBIN TOTAL 0.4 mg/dL (0.2-1.0); BUN/CREATININE RATIO 21.7 (No establ ref range); C-REACTIVE PROTEIN 1.26 ng/dL (<=0.50); CALCIUM 8.7 mg/dL (8.5-10.1); CREATININE 0.83 mg/dL (0.55-1.02); EST CRCL DRUG DOSING (CG) 54.32 mL/min; MAGNESIUM 1.9 mg/dL (1.8-2.4); POTASSIUM,K 3.3 mmol/L (3.5-5.1); PROTEIN TOTAL,TP 6.9 g/dL (6.4-8.2)
[2024-11-13 07:01] LABS: A/G RATIO 0.73
[2024-11-13] MEDS: Empagliflozin 10 MG Tab PO SCH (09:06)
[2024-11-13] MEDS ORDERED: Glucagon,Human Recombinant 1 MG Vial IM PRN (09:43)
[2024-11-13] MEDS ORDERED: 50% Dextrose in Water 50 ML Syringe IVPUSH PRN (09:43)
[2024-11-13] MEDS: Phenazopyridine 95 MG Tab PO ONE (10:21)
[2024-11-13] MEDS: Potassium Chloride 10 MEQ Tab.ER PO ONE (10:21)
[2024-11-13] MEDS: Insulin Lispro 100 Units/ML 3 ML Vial SUBCUT SCH (12:10)
[2024-11-13] MEDS: Phenazopyridine 95 MG Tab PO SCH (20:30)
[2024-11-14 06:18] LABS: BASOPHILS PERCENT AUTO 0.2 % (0.0-1.0); EOSINOPHILS PERCENT AUTO 0.8 % (1.0-3.0); HEMATOCRIT 29.5 % (37.0-47.0); HEMOGLOBIN 9.2 g/dL (12.0-16.0); LYMPHOCYTES PERCENT AUTO 41.9 % (20.5-50.1); MEAN CORPUSCULAR HEMOGLOBIN 32.7 pg (27.0-34.0); MEAN CORPUSCULAR HGB CONC 31.2 g/dL (33.0-35.0); MONOCYTES PERCENT AUTO 5.7 % (2-8); NEUTROPHILS PERCENT AUTO 51.4 % (42.2-75.2); PLATELET COUNT,PLT 142 10^3/uL (150-450); RED BLOOD CELL COUNT 2.81 10^6/uL (4.2-5.4); WHITE BLOOD CELL COUNT,WBC 5.1 10^3/uL (5.0-10.0)
[2024-11-14 06:37] LABS: ALBUMIN 2.6 g/dL (3.4-5.0); ANION GAP 11.1 mEq/L (7-13); BILIRUBIN TOTAL 0.3 mg/dL (0.2-1.0); BUN/CREATININE RATIO 26.1 (No establ ref range); C-REACTIVE PROTEIN 0.53 ng/dL (<=0.50); CALCIUM 8.7 mg/dL (8.5-10.1); CREATININE 0.88 mg/dL (0.55-1.02); EST CRCL DRUG DOSING (CG) 51.23 mL/min; MAGNESIUM 1.5 mg/dL (1.8-2.4); POTASSIUM,K 3.1 mmol/L (3.5-5.1); PROTEIN TOTAL,TP 6.3 g/dL (6.4-8.2)
[2024-11-14 06:42] LABS: A/G RATIO 0.7
[2024-11-14] MEDS: Magnesium Oxide 400 MG Tab PO ONE (07:33)
[2024-11-14] MEDS: Potassium Chloride 10 MEQ Tab.ER PO SCH (07:33)
[2024-11-14 07:41] VITALS: BP 127/59; PULSE 64
== END 2024-11-14 09:20 | disposition home or self-care (01) | DRG 871 ==
LOC: DL.ED 13:18 → DL.MS 16:45 → DL.ED 17:08
PROVIDERS: ADMIT Internal Medicine; ATTEND Internal Medicine
DX: A41.9 Sepsis, unspecified organism (principal); G92.8 Other toxic encephalopathy; N39.0 Urinary tract infection, site not specified; E44.0 Moderate protein-calorie malnutrition; E87.20 Acidosis, unspecified; Z68.25 Body mass index [BMI] 25.0-25.9, adult; E78.5 Hyperlipidemia, unspecified; I10 Essential (primary) hypertension; Z66 Do not resuscitate; K21.9 Gastro-esophageal reflux disease without esophagitis; R53.1 Weakness; H40.9 Unspecified glaucoma; H54.7 Unspecified visual loss; J45.909 Unspecified asthma, uncomplicated; F41.9 Anxiety disorder, unspecified; E66.9 Obesity, unspecified; E83.42 Hypomagnesemia; D50.9 Iron deficiency anemia, unspecified; D47.2 Monoclonal gammopathy; M19.90 Unspecified osteoarthritis, unspecified site; F19.11 Other psychoactive substance abuse, in remission; F43.21 Adjustment disorder with depressed mood; R60.0 Localized edema; R21 Rash and other nonspecific skin eruption; F10.129 Alcohol abuse with intoxication, unspecified; R62.7 Adult failure to thrive; E11.65 Type 2 diabetes mellitus with hyperglycemia; J42 Unspecified chronic bronchitis; Z79.899 Other long term (current) drug therapy; Z87.891 Personal history of nicotine dependence; Z98.890 Other specified postprocedural states; Z79.4 Long term (current) use of insulin
CPT/HCPCS: 36415; 71045; 80053; 80305-QW; 80307; 81001; 82306; 82550; 82947; 83605; 83690; 83735; 85025; 85610; 85730; 86140; 87040; 87086; A9270-GY; J0696; J1720; J1815-GY; J3411; J3475; J3490; J7030; J7120; P9047

== ENCOUNTER 2025-02-19 12:33 | Emergency (ER) | payer MEDICARE ==
[2025-02-19 12:58] LABS: BASOPHILS PERCENT AUTO 0.1 % (0.0-1.0); EOSINOPHILS PERCENT AUTO 0.6 % (1.0-3.0); LYMPHOCYTES PERCENT AUTO 14.5 % (20.5-50.1); MONOCYTES PERCENT AUTO 5.1 % (2-8); NEUTROPHILS PERCENT AUTO 79.7 % (42.2-75.2); PLATELET COUNT,PLT 158 10^3/uL (150-450); RED BLOOD CELL COUNT 3.53 10^6/uL (4.2-5.4); WHITE BLOOD CELL COUNT,WBC 6.8 10^3/uL (5.0-10.0)
[2025-02-19 13:12] LABS: INR 0.9 (0.9-1.2)
[2025-02-19 13:17] LABS: A/G RATIO 0.78; ALANINE AMINOTRANSFERASE,ALT 48.0 U/L (14-59); ASPARTATE AMNIOTRANSFERASE,AST 151.0 U/L (15-37); BILIRUBIN DIRECT 1.0 mg/dL (0.0-0.2); BILIRUBIN INDIRECT 0.4; BILIRUBIN TOTAL 1.4 mg/dL (0.2-1.0); BLOOD UREA NITROGEN,BUN 23.0 mg/dL (7-18); CARBON DIOXIDE,CO2 30.0 mmol/L (21-32); CHLORIDE,CL 107.0 mmol/L (98-107); CREATININE 0.84 mg/dL (0.55-1.02); EST CRCL DRUG DOSING (CG) 53.67 mL/min; ESTIMATED GFR 73.0 mL/min (>=60); GLUCOSE RANDOM 172.0 mg/dL (70-99); POTASSIUM,K 4.5 mmol/L (3.5-5.1); PROTEIN TOTAL,TP 7.1 g/dL (6.4-8.2); SODIUM,NA 142.0 mmol/L (136-145)
[2025-02-19] MEDS: Iopamidol 755 Mg/ML 100 ML Bottle IVPUSH ONE (13:42)
[2025-02-19 14:50] LABS: APPEARANCE,URINE CLEAR (CLEAR); GLUCOSE,URINE NEGATIVE (NEGATIVE); OCCULT BLOOD,URINE NEGATIVE (NEGATIVE)
[2025-02-19 15:03] LABS: EPITHELIAL CELLS,URINE RARE /HPF (NOT SEEN)
[2025-02-19 15:49] VITALS: BP 157/72; PULSE 64
== END 2025-02-19 15:27 ==
LOC: DL.ED 12:33
DX: E80.6 Other disorders of bilirubin metabolism (principal); R93.5 Abnormal findings on diagnostic imaging of other abdominal regions, including retroperitoneum; I10 Essential (primary) hypertension; E66.9 Obesity, unspecified; E11.9 Type 2 diabetes mellitus without complications; Z88.8 Allergy status to other drugs, medicaments and biological substances; Z79.4 Long term (current) use of insulin; Z79.899 Other long term (current) drug therapy
CPT/HCPCS: 36415; 74177; 80048; 80076; 81001; 82150; 83690; 85025; 85610; 96361; 96374; 99285; J7030; Q9967; J1171

== ENCOUNTER 2025-03-29 07:42 | Inpatient (IN) | payer MEDICARE ==
[2025-03-29] MEDS ORDERED: Sodium Chloride 0.9% 10 ML Syringe FLUSH PRN (07:45)
[2025-03-29 07:54] LABS: BASOPHILS PERCENT AUTO 0.1 % (0.0-1.0); EOSINOPHILS PERCENT AUTO 1.3 % (1.0-3.0); LYMPHOCYTES PERCENT AUTO 28.5 % (20.5-50.1); MONOCYTES PERCENT AUTO 14.1 % (2-8); NEUTROPHILS PERCENT AUTO 56.0 % (42.2-75.2); PLATELET COUNT,PLT 161 10^3/uL (150-450); RED BLOOD CELL COUNT 3.19 10^6/uL (4.2-5.4); WHITE BLOOD CELL COUNT,WBC 7.0 10^3/uL (5.0-10.0)
[2025-03-29 08:15] LABS: INR 1.0 (0.9-1.2); PTT,PARTIAL THROMBOPLSTIN TIME 26.3 SEC (22.0-34.0)
[2025-03-29 08:16] LABS: B-TYPE NATRIURETIC PEPTIDE,BNP 41.0 pg/ml (0-100)
[2025-03-29 08:18] LABS: ALANINE AMINOTRANSFERASE,ALT 26.0 U/L (14-59); ASPARTATE AMNIOTRANSFERASE,AST 32.0 U/L (15-37); BILIRUBIN TOTAL 0.5 mg/dL (0.2-1.0); BLOOD UREA NITROGEN,BUN 10.0 mg/dL (7-18); CARBON DIOXIDE,CO2 27.0 mmol/L (21-32); CHLORIDE,CL 92.0 mmol/L (98-107); CREATININE 0.81 mg/dL (0.55-1.02); EST CRCL DRUG DOSING (CG) 55.66 mL/min; ETHANOL BLOOD MEDICAL 157.0 mg/dL (0); GLUCOSE RANDOM 183.0 mg/dL (70-99); POTASSIUM,K 3.1 mmol/L (3.5-5.1); PROTEIN TOTAL,TP 7.0 g/dL (6.4-8.2); SODIUM,NA 129.0 mmol/L (136-145)
[2025-03-29 08:20] LABS: A/G RATIO 0.71; ESTIMATED GFR 77.0 mL/min (>=60); LACTIC ACID 2.9 mmol/L (0.4-2.0)
[2025-03-29] MEDS: Potassium Chloride 10 MEQ Tab.ER PO ONE (08:42)
[2025-03-29] MEDS: Magnesium Sulfate 2 GM/50 mL 2 GM in Premix Bag 1 BAG IV ONE ×2 (08:42→09:57)
[2025-03-29] MEDS: MVI, Adult with Vitamin K 10 ML, Folic Acid 1 MG, Thiamine 100 MG in Lactated Ringers 1... IV ONE (08:43)
[2025-03-29 12:08] LABS: APPEARANCE,URINE SLIGHTLY CLOUDY (CLEAR); GLUCOSE,URINE NEGATIVE (NEGATIVE); OCCULT BLOOD,URINE NEGATIVE (NEGATIVE)
[2025-03-29 12:17] LABS: AMPHETAMINES,URINE NEGATIVE (NEGATIVE); BARBITURATES,URINE NEGATIVE (NEGATIVE); MDMA (ECSTASY), URINE NEGATIVE (NEGATIVE); METHAMPHETAMINES,URINE NEGATIVE (NEGATIVE); OPIATES,URINE NEGATIVE (NEGATIVE); OXYCODONE,URINE NEGATIVE (NEGATIVE); PHENCYCLIDINE,URINE NEGATIVE (NEGATIVE); TCA,URINE NEGATIVE (NEGATIVE)
[2025-03-29 12:25] LABS: EPITHELIAL CELLS,URINE FEW /HPF (NOT SEEN)
[2025-03-29] MEDS ORDERED: Ondansetron 4 MG/2 ML SDV IVPUSH PRN (12:39)
[2025-03-29 13:15] LABS: GAMMA GLUTAMYL TRANSFERASE,GGT 171.0 U/L (5-55); T4 FREE 1.51 ng/dL (0.76-1.46); TSH ULTRASENSITIVE 0.66 uIU/mL (0.36-3.74)
[2025-03-29] MEDS: Heparin Sodium 5,000 Units/ML Vial SUBCUT SCH (13:19)
[2025-03-29] MEDS: Sucralfate Suspension 1 GM/10 ML Cup PO SCH (16:58)
[2025-03-29] MEDS: Insulin Glarg,Human.Rec.Analog 100 Unit/ML 10 ML Vial SUBCUT SCH (21:20)
[2025-03-30 06:19] LABS: BASOPHILS PERCENT AUTO 0.2 % (0.0-1.0); EOSINOPHILS PERCENT AUTO 2.5 % (1.0-3.0); LYMPHOCYTES PERCENT AUTO 35.0 % (20.5-50.1); MONOCYTES PERCENT AUTO 15.0 % (2-8); NEUTROPHILS PERCENT AUTO 47.3 % (42.2-75.2); PLATELET COUNT,PLT 142 10^3/uL (150-450); RED BLOOD CELL COUNT 2.69 10^6/uL (4.2-5.4); WHITE BLOOD CELL COUNT,WBC 4.1 10^3/uL (5.0-10.0)
[2025-03-30 06:45] LABS: ALANINE AMINOTRANSFERASE,ALT 22.0 U/L (14-59); ASPARTATE AMNIOTRANSFERASE,AST 37.0 U/L (15-37); BILIRUBIN DIRECT 0.2 mg/dL (0.0-0.2); BILIRUBIN INDIRECT 0.1; BILIRUBIN TOTAL 0.3 mg/dL (0.2-1.0); BLOOD UREA NITROGEN,BUN 9.0 mg/dL (7-18); CARBON DIOXIDE,CO2 30.0 mmol/L (21-32); CHLORIDE,CL 101.0 mmol/L (98-107); CREATININE 0.6 mg/dL (0.55-1.02); EST CRCL DRUG DOSING (CG) 75.14 mL/min; GLUCOSE RANDOM 150.0 mg/dL (70-99); PHOSPHORUS 2.6 mg/dL (2.6-4.7); POTASSIUM,K 4.0 mmol/L (3.5-5.1); PROTEIN TOTAL,TP 5.4 g/dL (6.4-8.2); SODIUM,NA 138.0 mmol/L (136-145)
[2025-03-30 06:47] LABS: A/G RATIO 0.64; ESTIMATED GFR 95.0 mL/min (>=60)
[2025-03-30 06:50] LABS: LACTIC ACID 2.0 mmol/L (0.4-2.0)
[2025-03-30] MEDS ORDERED: Sodium Chloride 0.9% 10 ML Syringe FLUSH PRN (08:12)
[2025-03-30] MEDS: Potassium Chloride 10 MEQ Tab.ER PO SCH (09:48)
[2025-03-30] MEDS: Magnesium Sulfate 2 GM/50 mL 2 GM in Premix Bag 1 BAG IV ONE (09:48)
[2025-03-30] MEDS: Sodium Chloride 0.9% 10 ML Syringe FLUSH SCH (09:50)
[2025-03-30 10:43] LABS: BASOPHILS PERCENT AUTO 0.2 % (0.0-1.0); EOSINOPHILS PERCENT AUTO 2.0 % (1.0-3.0); LYMPHOCYTES PERCENT AUTO 28.0 % (20.5-50.1); MONOCYTES PERCENT AUTO 15.9 % (2-8); NEUTROPHILS PERCENT AUTO 53.9 % (42.2-75.2); PLATELET COUNT,PLT 155 10^3/uL (150-450); RED BLOOD CELL COUNT 2.78 10^6/uL (4.2-5.4); WHITE BLOOD CELL COUNT,WBC 4.6 10^3/uL (5.0-10.0)
[2025-03-30 11:22] LABS: IRON,FE 21.0 ug/dL (50-170); PERCENT FE SATURATION 7.8 % (20.0-50.0)
[2025-03-30] MEDS: Lactulose Soln 10 GM/15 ML 30 ML UD Cup PO ONE (11:34)
[2025-03-30 11:54] LABS: FOLIC ACID 7.8 ng/mL (8.6-58.9)
[2025-03-31 06:26] LABS: BASOPHILS PERCENT AUTO 0.2 % (0.0-1.0); EOSINOPHILS PERCENT AUTO 2.2 % (1.0-3.0); LYMPHOCYTES PERCENT AUTO 31.8 % (20.5-50.1); MONOCYTES PERCENT AUTO 15.1 % (2-8); NEUTROPHILS PERCENT AUTO 50.7 % (42.2-75.2); PLATELET COUNT,PLT 161 10^3/uL (150-450); RED BLOOD CELL COUNT 2.71 10^6/uL (4.2-5.4); WHITE BLOOD CELL COUNT,WBC 4.2 10^3/uL (5.0-10.0)
[2025-03-31] MEDS: Magnesium Sulfate 2 GM/50 mL 2 GM in Premix Bag 1 BAG IV ONE (09:39)
[2025-03-31] MEDS ORDERED: Polyvinyl Alcohol 1.4% Ophth Soln 15 ML Bottle EYEBOTH PRN (09:54)
[2025-03-31] MEDS: ferumoxytoL 500 MG in Sodium Chloride 0.9% 100 ML IV ONE (12:28)
[2025-03-31] MEDS: Heparin Sodium 5,000 Units/ML Vial SUBCUT SCH (21:34)
[2025-04-01] MEDS: Magnesium Sulfate 2 GM/50 mL 2 GM in Premix Bag 1 BAG IV ONE (11:34)
[2025-04-01] MEDS: Magnesium Sulfate/D5W 1 GM IV ONE (20:51)
[2025-04-01] MEDS ORDERED: Non-Formulary Medication 1 Each (Bimatoprost [Lumigan 0.01% Ophth Soln] 5 ML Bottle) EYEBOTH SCH (21:00)
[2025-04-01] MEDS ORDERED: Magnesium Sulfate/D5W 1 GM/100 ML BAG IV ONE (21:00)
[2025-04-02 06:29] LABS: BASOPHILS PERCENT AUTO 0.7 % (0.0-1.0); EOSINOPHILS PERCENT AUTO 4.0 % (1.0-3.0); LYMPHOCYTES PERCENT AUTO 38.7 % (20.5-50.1); MONOCYTES PERCENT AUTO 15.7 % (2-8); NEUTROPHILS PERCENT AUTO 40.9 % (42.2-75.2); PLATELET COUNT,PLT 174 10^3/uL (150-450); RED BLOOD CELL COUNT 2.63 10^6/uL (4.2-5.4); WHITE BLOOD CELL COUNT,WBC 3.0 10^3/uL (5.0-10.0)
[2025-04-02 11:45] VITALS: BP 131/67; PULSE 64
== END 2025-04-02 14:08 | disposition home or self-care (01) | DRG 202 ==
LOC: DL.ED 07:42 → UNDOADMOB 11:06 → DL.MS 11:06 → OBSVTOIN 03-30 16:01
PROVIDERS: ADMIT Internal Medicine; ATTEND Internal Medicine
DX: J20.9 Acute bronchitis, unspecified (principal); E87.20 Acidosis, unspecified; E87.1 Hypo-osmolality and hyponatremia; N39.0 Urinary tract infection, site not specified; K29.70 Gastritis, unspecified, without bleeding; Z66 Do not resuscitate; K21.9 Gastro-esophageal reflux disease without esophagitis; E83.42 Hypomagnesemia; B96.1 Klebsiella pneumoniae [K. pneumoniae] as the cause of diseases classified elsewhere; E87.6 Hypokalemia; E66.9 Obesity, unspecified; H40.9 Unspecified glaucoma; H54.7 Unspecified visual loss; I10 Essential (primary) hypertension; J45.909 Unspecified asthma, uncomplicated; F41.9 Anxiety disorder, unspecified; F32.A Depression, unspecified; E11.9 Type 2 diabetes mellitus without complications; E78.5 Hyperlipidemia, unspecified; F10.10 Alcohol abuse, uncomplicated; F17.200 Nicotine dependence, unspecified, uncomplicated; E53.8 Deficiency of other specified B group vitamins; D50.9 Iron deficiency anemia, unspecified; E55.9 Vitamin D deficiency, unspecified; Z68.26 Body mass index [BMI] 26.0-26.9, adult; Z88.8 Allergy status to other drugs, medicaments and biological substances; Z98.890 Other specified postprocedural states; Z79.899 Other long term (current) drug therapy; Z79.4 Long term (current) use of insulin
CPT/HCPCS: 36415 ×2; 71045; 80048; 80053; 80076; 80305; 80307; 81001; 82140; 82272 ×3; 82607; 82746; 82977; 83036; 83540; 83550; 83605 ×3; 83690; 83735 ×2; 83880; 84100; 84145; 84439; 84443; 84484 ×2; 85025 ×3; 85610; 85730; 86140; 86850; 86900; 86901; 87040 ×2; 87086; 87088; 87186; 93005; 94010; 96361; 96365; 96366; 96368; 99285; A9270 ×14; J0696 ×2; J1644 ×4; J1808; J1815; J2470 ×2; J3411; J3475 ×3; J7030; J7120; S5010 ×4; 93010; 99284; G0378; J3490; Q0138

== ENCOUNTER 2025-04-18 03:32 | Emergency (ER) | payer MEDICARE ==
[2025-04-18] MEDS: GI Cocktail Oral Solution 30 ML PO ONE (03:51)
[2025-04-18 03:58] LABS: BASOPHILS PERCENT AUTO 0.2 % (0.0-1.0); EOSINOPHILS PERCENT AUTO 4.9 % (1.0-3.0); LYMPHOCYTES PERCENT AUTO 34.8 % (20.5-50.1); MONOCYTES PERCENT AUTO 5.5 % (2-8); NEUTROPHILS PERCENT AUTO 54.6 % (42.2-75.2); PLATELET COUNT,PLT 184 10^3/uL (150-450); RED BLOOD CELL COUNT 3.30 10^6/uL (4.2-5.4); WHITE BLOOD CELL COUNT,WBC 5.1 10^3/uL (5.0-10.0)
[2025-04-18 04:14] LABS: B-TYPE NATRIURETIC PEPTIDE,BNP 94.0 pg/ml (0-100)
[2025-04-18 04:20] LABS: ALANINE AMINOTRANSFERASE,ALT 27.0 U/L (14-59); ASPARTATE AMNIOTRANSFERASE,AST 33.0 U/L (15-37); BILIRUBIN TOTAL 0.3 mg/dL (0.2-1.0); BLOOD UREA NITROGEN,BUN 12.0 mg/dL (7-18); CARBON DIOXIDE,CO2 27.0 mmol/L (21-32); CHLORIDE,CL 105.0 mmol/L (98-107); CREATININE 0.55 mg/dL (0.55-1.02); EST CRCL DRUG DOSING (CG) 81.97 mL/min; ETHANOL BLOOD MEDICAL 196.0 mg/dL (0); GLUCOSE RANDOM 138.0 mg/dL (70-99); POTASSIUM,K 3.5 mmol/L (3.5-5.1); PROTEIN TOTAL,TP 7.6 g/dL (6.4-8.2); SODIUM,NA 142.0 mmol/L (136-145)
[2025-04-18 04:25] LABS: A/G RATIO 0.69; ESTIMATED GFR 97.0 mL/min (>=60)
[2025-04-18] MEDS: Magnesium Sulfate 2 GM/50 mL 2 GM in Premix Bag 1 BAG IV ONE (04:41)
[2025-04-18 05:34] LABS: APPEARANCE,URINE CLEAR (CLEAR); GLUCOSE,URINE NEGATIVE (NEGATIVE); OCCULT BLOOD,URINE NEGATIVE (NEGATIVE)
[2025-04-18 05:37] LABS: AMPHETAMINES,URINE NEGATIVE (NEGATIVE); BARBITURATES,URINE NEGATIVE (NEGATIVE); MDMA (ECSTASY), URINE NEGATIVE (NEGATIVE); METHAMPHETAMINES,URINE NEGATIVE (NEGATIVE); OPIATES,URINE NEGATIVE (NEGATIVE); OXYCODONE,URINE NEGATIVE (NEGATIVE); PHENCYCLIDINE,URINE NEGATIVE (NEGATIVE); TCA,URINE NEGATIVE (NEGATIVE)
[2025-04-18 06:26] VITALS: BP 123/71; PULSE 74
== END 2025-04-18 06:35 | disposition home or self-care (01) ==
LOC: DL.ED 03:32
DX: R07.9 Chest pain, unspecified (principal); J18.9 Pneumonia, unspecified organism; I10 Essential (primary) hypertension; E11.9 Type 2 diabetes mellitus without complications; E66.9 Obesity, unspecified; Z88.8 Allergy status to other drugs, medicaments and biological substances; Z79.899 Other long term (current) drug therapy; Z79.4 Long term (current) use of insulin
CPT/HCPCS: 36415; 71045; 80053; 80305-QW; 80307; 81003; 83690; 83735; 83880; 84484; 85025; 93005; 93010; 96365; 96366; 96375; 99284; 99285-25; A9270-GY; J0696; J3475

== ENCOUNTER 2025-04-25 20:01 | Emergency (ER) | payer MEDICARE, OTHER ==
[2025-04-25] MEDS: Furosemide 20 MG/2 ML VIAL IVPUSH ONE (20:35)
[2025-04-25 20:37] LABS: BASOPHILS PERCENT AUTO 0.2 % (0.0-1.0); EOSINOPHILS PERCENT AUTO 0.6 % (1.0-3.0); LYMPHOCYTES PERCENT AUTO 10.4 % (20.5-50.1); MONOCYTES PERCENT AUTO 3.2 % (2-8); NEUTROPHILS PERCENT AUTO 85.6 % (42.2-75.2); PLATELET COUNT,PLT 175 10^3/uL (150-450); RED BLOOD CELL COUNT 3.37 10^6/uL (4.2-5.4); WHITE BLOOD CELL COUNT,WBC 10.7 10^3/uL (5.0-10.0)
[2025-04-25 20:59] LABS: B-TYPE NATRIURETIC PEPTIDE,BNP 19.0 pg/ml (0-100)
[2025-04-25 21:00] LABS: ALANINE AMINOTRANSFERASE,ALT 54.0 U/L (14-59); ASPARTATE AMNIOTRANSFERASE,AST 116.0 U/L (15-37); BILIRUBIN TOTAL 1.0 mg/dL (0.2-1.0); BLOOD UREA NITROGEN,BUN 29.0 mg/dL (7-18); CARBON DIOXIDE,CO2 19.0 mmol/L (21-32); CHLORIDE,CL 97.0 mmol/L (98-107); CREATININE 0.97 mg/dL (0.55-1.02); EST CRCL DRUG DOSING (CG) 46.48 mL/min; GLUCOSE RANDOM 85.0 mg/dL (70-99); POTASSIUM,K 5.1 mmol/L (3.5-5.1); PROTEIN TOTAL,TP 7.8 g/dL (6.4-8.2); SODIUM,NA 138.0 mmol/L (136-145)
[2025-04-25 21:01] LABS: A/G RATIO 0.73; ESTIMATED GFR 62.0 mL/min (>=60)
[2025-04-25 21:11] LABS: LACTIC ACID 3.5 mmol/L (0.4-2.0)
[2025-04-25] MEDS: Thiamine 200 MG/2 ML MDV IM ONE (23:27)
[2025-04-26 00:02] LABS: APPEARANCE,URINE CLEAR (CLEAR); GLUCOSE,URINE NEGATIVE (NEGATIVE); OCCULT BLOOD,URINE TRACE-INTACT (NEGATIVE)
[2025-04-26 00:08] LABS: SQUAMOUS EPITHELIAL CELLS,UR FEW /HPF (NOT SEEN)
[2025-04-26] MEDS: Ondansetron 4 MG/2 ML SDV IVPUSH ONE (00:21)
[2025-04-26 01:18] VITALS: BP 130/68; PULSE 109
== END 2025-04-26 00:45 | disposition home or self-care (01) ==
LOC: DL.ED 20:01
DX: R60.0 Localized edema (principal); E86.0 Dehydration; F10.120 Alcohol abuse with intoxication, uncomplicated; I10 Essential (primary) hypertension; K21.9 Gastro-esophageal reflux disease without esophagitis; E11.9 Type 2 diabetes mellitus without complications; Z88.8 Allergy status to other drugs, medicaments and biological substances; Z79.4 Long term (current) use of insulin; Z79.899 Other long term (current) drug therapy; Z79.82 Long term (current) use of aspirin; Y90.9 Presence of alcohol in blood, level not specified
CPT/HCPCS: 36415; 71045; 80053; 80307; 81001; 83605; 83690; 83735; 83880; 84484; 85025; 93005; 96372; 96374; 96375; 99285; A9270; J1938; J2405; J3411; 81003

== ENCOUNTER 2025-04-26 06:48 | Emergency (ER) | payer MEDICARE, OTHER ==
[2025-04-26 07:39] LABS: BASOPHILS PERCENT AUTO 0.1 % (0.0-1.0); EOSINOPHILS PERCENT AUTO 0.0 % (1.0-3.0); LYMPHOCYTES PERCENT AUTO 5.8 % (20.5-50.1); MONOCYTES PERCENT AUTO 4.9 % (2-8); NEUTROPHILS PERCENT AUTO 89.2 % (42.2-75.2); PLATELET COUNT,PLT 121 10^3/uL (150-450); RED BLOOD CELL COUNT 3.05 10^6/uL (4.2-5.4); WHITE BLOOD CELL COUNT,WBC 7.9 10^3/uL (5.0-10.0)
[2025-04-26 08:08] LABS: ALANINE AMINOTRANSFERASE,ALT 47 U/L (14-59); ASPARTATE AMNIOTRANSFERASE,AST 89 U/L (15-37); BILIRUBIN TOTAL 1.2 mg/dL (0.2-1.0); BLOOD UREA NITROGEN,BUN 29 mg/dL (7-18); CARBON DIOXIDE,CO2 22 mmol/L (21-32); CHLORIDE,CL 95 mmol/L (98-107); CREATININE 0.98 mg/dL (0.55-1.02); EST CRCL DRUG DOSING (CG) 47.86 mL/min; GLUCOSE RANDOM 265 mg/dL (70-99); POTASSIUM,K 4.9 mmol/L (3.5-5.1); PROTEIN TOTAL,TP 7.3 g/dL (6.4-8.2); SODIUM,NA 134 mmol/L (136-145)
[2025-04-26 08:09] LABS: A/G RATIO 0.70; ESTIMATED GFR 61 mL/min (>=60); ETHANOL BLOOD MEDICAL < 3 mg/dL (0); LACTIC ACID 1.4 mmol/L (0.4-2.0)
[2025-04-26] MEDS: Lactated Ringers 1,000 ML IV ONE (08:23)
[2025-04-26] MEDS: Insulin Glarg,Human.Rec.Analog 100 Unit/ML 10 ML Vial SUBCUT ONE (08:23)
[2025-04-26 11:23] VITALS: BP 127/62; PULSE 113
== END 2025-04-26 10:26 | disposition home or self-care (01) ==
LOC: DL.ED 06:48
DX: M54.50 Low back pain, unspecified (principal); M25.571 Pain in right ankle and joints of right foot; M25.572 Pain in left ankle and joints of left foot; I10 Essential (primary) hypertension; E11.9 Type 2 diabetes mellitus without complications; Z88.8 Allergy status to other drugs, medicaments and biological substances; Z79.4 Long term (current) use of insulin; Z79.899 Other long term (current) drug therapy; Z79.82 Long term (current) use of aspirin; W18.39XA Other fall on same level, initial encounter
CPT/HCPCS: 36415; 71045; 72131; 73610; 80053; 80307; 83605; 83690; 83735; 84484; 85025; 93005; 96360; 99284; A9270; J1815; J7120